=== PATIENT | female | born 1940 | race Caucasian/White ===

== ENCOUNTER 2017-06-28 00:49 | Observation (INO) | payer MEDICARE ==
[2017-06-28 01:16] LABS: #Basophils 0.1 thou/uL (0.0-0.2); #Eosinphils 0.4 thou/uL (0.0-0.7); #Monocytes 1.4 thou/uL (0.11-0.59); #Neutrophils 15.8 thou/uL (1.40-6.50); %Basophils 0.5 % (0.0-1.0); %Eosinophils 2.1 % (0.0-10.0); %Lymphocytes 10.3 % (21.0-51.0); Mean Platelet Volume 7.7 fL (7.4-10.4); Red Blood Cell (RBC) Count 4.41 mill/uL (4.20-5.40); White Blood Cell (WBC) Count 19.7 thou/uL (4.8-10.8)
[2017-06-28 01:34] LABS: ALT (SGPT) 10 U/L (8-55); AST (SGOT) 18 U/L (5-34); Alkaline Phosphatase 92 U/L (40-150); Anion Gap 13 mmol/L (10-20); BUN (Urea Nitrogen) 27 mg/dL (9.8-20.1); Bilirubin, Total 0.3 mg/dL (0.2-1.2); CK (CPK) 46 U/L (29-168); Calc. Creatinine Clearance 0 mL/min (70-130); Calcium 9.1 mg/dL (7.8-10.44); Carbon Dioxide 24 mmol/L (23-31); Chloride 106 mmol/L (98-107); Estimated GFR-MDRD 37; Globulin 3.3 g/dL (2.4-3.5); Protein, Total 7.4 g/dL (6.0-8.3)
[2017-06-28 01:39] LABS: Troponin I 0.029 ng/mL (< 0.028)
[2017-06-28 04:22] LABS: Bilirubin Negative (Negative); Blood, Urine Negative (Negative); Glucose, Urine (Dipstick) Negative (Negative); Ketone, Urine Negative (Negative); Nitrite Negative (Negative); Protein, Urine (Dipstick) Negative (Neg-Trace); Urobilinogen 0.2 mg/dL (0.2-1.0)
[2017-06-28] MEDS ORDERED: Nitroglycerin 2% Ointment 1 INCH/1 GM Packet ONE (04:39)
[2017-06-28 04:47] LABS: Troponin I 0.051 ng/mL (< 0.028)
[2017-06-28] MEDS ORDERED: Acetaminophen 325 MG TAB PO PRN ×2 (05:43→05:50)
[2017-06-28] MEDS ORDERED: Bisacodyl 5 MG TAB PO PRN (05:43)
[2017-06-28] MEDS ORDERED: Ondansetron ODT 4 MG TAB SL PRN (05:50)
[2017-06-28] MEDS ORDERED: Ondansetron HCl/PF 4 MG/2 ML Vial IVP PRN (05:50)
[2017-06-28] MEDS ORDERED: Sodium Chloride 0.9% 1,000 ML IV SCH (06:00)
[2017-06-28] MEDS ORDERED: Nitroglycerin 2% Ointment 1 INCH/1 GM Packet TOP SCH (06:00)
[2017-06-28] MEDS ORDERED: cloNIDine 0.1 MG TAB PO PRN (06:04)
[2017-06-28] MEDS ORDERED: Levothyroxine Sodium 50 MCG TAB PO SCH (06:15)
[2017-06-28] MEDS ORDERED: Cyanocobalamin 1000 MCG/ML VIAL SC SCH (06:30)
--- NOTE | 2017-06-28 06:36 | HP ---
PRIMARY CARE PHYSICIAN: Dr. Amandeep Kaur. PATIENT'S COASTAL/HARBOR DEFENSE OFFICER: Dr. Chapo Gonzalez. CHIEF COMPLAINT: Chest discomfort. HISTORY OF PRESENT ILLNESS: Ms. Griffin is a pleasant 77-year-old lady who was seen at [facility] on 06/28/2017. She reports that she had elevated blood pressures yesterday afternoon. Following that, her shoulders started aching. She also developed retrosternal chest discomfort, sensation of tightness, nonradiat ing, 4/10 at its worst, not accompanied by nausea or vomiting. She reports chronic lightheadedness w hen she stands suddenly. This has not changed. There were no relieving factors for the chest discom fort. However, she reports that it was worse when she took deep breaths. She came to the emergency room, because of ongoing retrosternal chest discomfort. REVIEW OF SYSTEMS: The following complete review of systems was negative, unless otherwise mentioned in the HPI or below: Constitutional: Weight loss or gain, sense of well-being, ability to conduct usual activities, exerc ise tolerance. Skin/Breast: Rash, itching, changes in hair growth or loss, nail changes, breast lumps, tenderness, swelling, nipple discharge. Eyes: Vision, double vision, tearing, blind spots, pain. ENT/Mouth: Headaches (location, time of onset, duration, precipitating factors), vertigo, lightheade dness, injury. Vision, double vision, tearing, blind spots, pain, nose bleeding, colds, obstruction, discharge, dental difficulties, gingival bleeding, dentures, neck stiffness, pain, tenderness, masses in thyroid or other areas. Cardiovascular: Precordial pain, substernal distress, palpitations, syncope, dyspnea on exertion, or thopnea, nocturnal paroxysmal dyspnea, edema, cyanosis, hypertension, heart murmurs, varicosities, ph lebitis, claudication. Respiratory: Pain, shortness of breath, wheezing, stridor, cough, hemoptysis, fever or night sweats. Gastrointestinal: Poor appetite, dysphagia, indigestion, abdominal pain, heartburn, eructation, naus ea, vomiting, hematemesis, jaundice, constipation, or diarrhea, abnormal stools (ino-colored, tarry, bloody, greasy, foul smelling), flatulence, hemorrhoids, recent changes in bowel habits. Genitourinary: Urgency, frequency, dysuria, nocturia, hematuria, polyuria, oliguria, unusual (or bismark nge in) color of urine, stones, hesitancy, change in size of stream, dribbling, acute retention or in continence, libido, potency. Musculoskeletal: Pain, swelling, redness or heat of muscles or joints, limitation, of motion, muscul ar weakness, atrophy, cramps. Neurologic/Psychiatric: Convulsions, paralyses, tremor, incoordination, parasthesias, difficulties w ith memory of speech, sensory or motor disturbances, or muscular coordination (ataxia, tremor), emoti onal problems, anxiety, depression, previous psychiatric care, unusual perceptions, hallucinations. Allergy/Immunologic: Skin rash, anemia, bleeding tendency, polydipsia, polyuria, intolerance to heat or cold. PAST MEDICAL HISTORY: Significant for hypertension, hypothyroidism, anemia, coronary artery disease, status post 3 cardiac stents, last stent about 2 or 3 years ago, she reports having a normal pharmac ologic stress test about 6 months ago. PAST SURGICAL HISTORY: Significant for coronary stents, renal stent, appendectomy and hysterectomy. PSYCHIATRIC HISTORY: Significant for anxiety. SOCIAL HISTORY: She denies tobacco use or recreational drug use. She drinks one small glass of red wine daily. FAMILY HISTORY: Significant for heart disease in 2 sisters and 3 brothers. CODE STATUS: I discussed her code status. She is DNR. ALLERGIES: ATIVAN and SULFA. CURRENT MEDICATIONS: Include carvedilol 25 mg 2 times a day, aspirin 81 mg daily, levothyroxine 50 m cg daily, alprazolam 0.125 mg 2 times a day, Benicar 40 mg daily, pravastatin 40 mg daily, clonidine 0.1 mg as needed. PHYSICAL EXAMINATION: GENERAL: Ms. Griffin is awake and alert, not in acute distress. VITAL SIGNS: Blood pressure is 137/58, pulse is 90. She is breathing at rate of 20 and saturating 9 6% on room air. She is afebrile. Her blood pressure in the emergency room was as high as 181/85. EYES: No scleral icterus. No conjunctival pallor. ENT: Moist mucosal membranes, no oropharyngeal erythema or exudates. NECK: Supple, nontender, normal range of movement. Trachea is midline. RESPIRATORY: Accessory muscles of breathing are not active. Chest wall movements are symmetric bila terally. LUNGS: Clear to auscultation without wheeze, rhonchi or crepitations. CARDIOVASCULAR: S1 and S2 are heard, regular. LUNGS: Peripheral pulses are palpable. No carotid bruits, no pericardial rub. ABDOMEN: Soft, nontender, bowel sounds heard, no hepatomegaly, no splenomegaly. NEUROLOGIC: Cranial nerves II through XII are intact. Deep tendon reflexes are 2+. SKIN: No rashes or subcutaneous nodules. MUSCULOSKELETAL: Power is 5/5 in all 4 extremities. Normal range of movement at all major extremity joints. LYMPHATIC: No cervical lymphadenopathy. PSYCHIATRIC: Normal mood, normal affect, patient is oriented to person, place, and time. LABORATORY DATA AND IMAGING: Ms. Griffin's labs and investigations were reviewed. I reviewed her elec trocardiogram, which shows normal sinus rhythm, no ST changes to suggest an acute coronary syndrome. She does have T-wave flattening in the inferior leads. Laboratory investigation showed leukocytosis with 19,700 white cells, of which 80.2% are neutrophils, normal hemoglobin, normal platelet count, e levated creatinine of 1.39, last known creatinine 1.07 in 07/2015, normal liver profile, indeterminat e troponin I of 0.051 at 0400 hours today, trending up from 0.029 at 0106 hours today. Lipase is nor mal. Urinalysis is normal. ASSESSMENT AND PLAN: Ms. Griffin is a pleasant 77-year-old lady who was seen at [facility] on 06/28/2017. Her problem list includes: 1. Chest pain: Given her significant cardiac history including the presence of coronary stents, I r ecommended pharmacologic stress test. However, since she had a normal stress test 6 months ago, the patient is reluctant to undergo another stress test at this time. We will obtain records from her ca rdiologist's office. We will also consult Cardiology Service here for their opinion and help with cynthia pollock. 2. Leukocytosis: Etiology is unclear. I reviewed her chest x-ray, which does not show any pulmonar y infiltrates. A flu test is pending. Urinalysis is normal. For now, we will continue to monitor f or any evidence of infection. 3. Renal insufficiency: Etiology is unclear at this time. Also, duration is unclear. For now, hyd rate the patient with intravenous fluids and recheck creatinine. 4. Hypertension: Resume home medications, monitor vital signs and titrate antihypertensives as need ed. 5. Hypothyroidism: Continue levothyroxine. 6. Anxiety: Continue alprazolam. Many thanks for allowing me to participate in your patient's care. Please feel free to contact me wi th any questions or concerns. LEVEL OF RISK: High. LEVEL OF COMPLEXITY: High.
[2017-06-28 07:53] VITALS: BMI 25.7
[2017-06-28] MEDS ORDERED: ALPRAZolam 0.25 MG TAB PO SCH (09:00)
[2017-06-28] MEDS ORDERED: Aspirin 325 MG TAB PO SCH (09:00)
[2017-06-28] MEDS ORDERED: Aspirin 81 mg Enteric Coated Tablet PO SCH (09:00)
[2017-06-28] MEDS ORDERED: Enoxaparin Sodium 40 MG/0.4 ML SYRINGE SC SCH (09:00)
[2017-06-28] MEDS ORDERED: Carvedilol 25 MG TAB PO SCH (09:00)
--- NOTE | 2017-06-28 10:10 | RAD ---
FRONTAL RADIOGRAPH CHEST PORTABLE UPRIGHT: Date: 06-28-17 Comparison: None. History: Hypertension, shoulder pain. FINDINGS: There is mild elevation of the right hemidiaphragm. Clips overlie the right hilar region. There is at herosclerotic calcification in the aortic arch. Coronary arterial calcification and/or stent material is noted. No pneumothorax, pleural fluid, focal consolidation or alveolar edema. IMPRESSION: No focal consolidation or alveolar edema. POS: [facility]
--- NOTE | 2017-06-28 11:09 | CON ---
DATE OF CONSULTATION: 06/28/2017 REASON FOR CONSULTATION: Atypical chest pain. PRIMARY PSYCHOLOGIST ENGINEERING: Dr. Chapo Gonzalez HISTORY OF PRESENT ILLNESS: Ms. Griffin is a very pleasant 77-year-old woman with a previous history o f CAD, status post stent placement x3 and renal artery stenosis, status post stent placement, who rec ently presented with malignant hypertension and atypical back and shoulder pain. She denies chest pr essure. She states her blood pressure was 218/103 during this episode. She then proceeded to the em ergency room. Her blood pressure was managed and her symptoms relieved. She states she recently had a stress study performed 6 months ago and by her account was felt to be w ithin normal limits. No ischemia present. She is currently pain free. Blood pressure also appears improved. PAST MEDICAL HISTORY: As described above including hypothyroidism, anemia, appendectomy, and hystere ctomy. SOCIAL HISTORY: No current tobacco or alcohol use. FAMILY HISTORY: Positive for CAD. ALLERGIES: ATIVAN and SULFA. CURRENT MEDICATIONS: Carvedilol, aspirin, Benicar, alprazolam, levothyroxine. Pravastatin and clonidine. REVIEW OF SYSTEMS: Ten point review of systems is reviewed and is as above, otherwise negative. PHYSICAL EXAMINATION: VITAL SIGNS: Blood pressure 129/81, pulse 86, respirations 20. GENERAL: Patient is a pleasant female who is in no acute distress. The patient appears her stated ag e. NEUROLOGIC: The patient is alert and oriented times 3 with no focal neurologic deficits. HEENT: Sclerae without icterus. Mouth has moist mucous membranes with normal pallor. NECK: No JVD. Carotid upstroke brisk. No bruits bilaterally. LUNGS: Clear to auscultation with unlabored respirations. BACK: No scoliosis or kyphosis. CARDIAC: Regular rate and rhythm with normal S1 and S2. No S3 or S4 noted. No significant rubs, mur murs, thrills, or gallops noted throughout the precordium. PMI is not displaced. There is no parast ernal heave. ABDOMEN: Soft, nontender, nondistended. No peritoneal signs present. No hepatosplenomegaly. No abn ormal striae. EXTREMITIES: 2+ femoral and 2+ dorsalis pedis pulses. No cyanosis, clubbing, or edema. SKIN: No gross abnormalities. PERTINENT LABS: Hemoglobin 12.6, creatinine 1.39. IMPRESSION: 1. Back and shoulder pain. 2. Malignant hypertension. 3. Coronary artery disease. RECOMMENDATIONS: Ms. Griffin recently had a noninvasive stress study that was negative for ischemia. I do not feel the need to proceed with a second stress study within a year. I discussed options incl uding coronary angiography versus medical therapy. Her symptoms are likely related to hypertensive c risis given a recent negative stress test. This is not her typical anginal symptoms. At this point, we have agreed to proceed with medical therapy. She would like to follow up with Dr. Gonzalez next we ek for further recommendations. I would recommend adding low dose Norvasc to her regimen in addition to continuing aspirin, atorvastatin, carvedilol. Otherwise, I have no further recommendations.
--- NOTE | 2017-06-28 11:26 | PDOC.PN ---
- Subjective Encounter Start Date: 06/28/17 Encounter Start Time: 11:25 Patient seen at bedside. No overnight events. No new complaints, but still has mild chest discomfort on inspiration. - Objective Resuscitation Status: Resuscitation Status DNR:Do Not Resuscitate Vital Signs & Weight: Vital Signs (12 hours) Temp Pulse Resp BP BP Pulse Ox 06/28/17 11:00 99.0 F 80 16 111/53 L 94 L 06/28/17 08:00 99.0 F 86 14 06/28/17 07:57 99.0 F 86 14 06/28/17 07:14 98.8 F 87 16 129/60 97 06/28/17 05:16 99.0 F 86 14 124/60 96 Weight Weight 150 lb 1.6 oz Result Diagrams: 06/28/17 01:05 06/28/17 01:05 Phys Exam - Physical Examination Constitutional: NAD HEENT: moist MMs Neck: no JVD Respiratory: clear to auscultation bilateral Cardiovascular: RRR Gastrointestinal: soft Musculoskeletal: pulses present Neurological: moves all 4 limbs Psychiatric: normal affect, A&O x 3 Dx/Plan (1) Chest pain Code(s): R07.9 - CHEST PAIN, UNSPECIFIED Status: Acute (2) Hypertension Code(s): I10 - ESSENTIAL (PRIMARY) HYPERTENSION Status: Acute Qualifiers: Hypertension type: essential hypertension Qualified Code(s): I10 - Essential (primary) hypertension - Plan cont current plan of care, plan discussed w/ family * Appreciate Cardiology input. Chest pain likely from elevated BP. Added Norvasc. The patient was offered a catheterization but wishes to f/u with her janitor caretaker Dr. Gonzalez at this time * Check CT chest to R/O PE * No overt etiology for leukocytosis. She states she would like to go home today and will follow up with here PCP for the results. * If CT is negative will D/C
[2017-06-28 15:53] VITALS: BP 105/54; TEMP 98.5
--- NOTE | 2017-06-28 15:57 | NM ---
VENTILATION PERFUSION STUDY 06/28/17 HISTORY: Elevated D-dimer. Left shoulder pain and high blood pressure. RADIOPHARMACEUTICALS: 15 millicuries Xenon 133, gas inhaled and 6.6 millicuries technetium 99m labeled MAA, IV. FINDINGS: The ventilation portion of the study demonstrates slight heterogeneous uptake within the lung bases w ith mild scattered retention of radiotracer on washout images suggesting an element of mild COPD. Perfusion images demonstrate a very small subsegmental perfusion defect at the posterior left lung ba se and it is difficult to determine whether this is a matched defect on the ventilation findings or w hether this represents a ventilation\perfusion mismatch. There are subtle linear photopenic defects a t the right lung base anteriorly as well as in the left upper lung zone also seen anteriorly which ar e not in a segmental or subsegmental distribution. There does appear to be a normal perfusion gradien t on the lateral views. Comparison chest x-ray demonstrates elevation of the right hemidiaphragm with atelectasis in the right mid lung zone. There is no moderate or large ventilation\perfusion mismatch seen within the lungs bilaterally. IMPRESSION: Low probability for pulmonary embolus. POS: [facility]
--- NOTE | 2017-06-28 18:25 | DIS ---
DATE OF ADMISSION: 06/28/2017 DATE OF DISCHARGE: 06/28/2017 DISCHARGE DISPOSITION: Home. DISCHARGE FOLLOWUP: 1. Follow up with Dr. Chapo Gonzalez, Cardiology in 7 days. 2. Her PCP as an outpatient. DISCHARGE DIAGNOSES: 1. Chest pain - acute coronary syndrome ruled out. 2. Hypertension. 3. Hypothyroidism. 4. History of coronary artery disease. DISCHARGE MEDICATIONS: 1. Xanax 0.25 mg p.o. b.i.d. 2. Aspirin 81 mg p.o. daily. 3. Coreg 25 mg p.o. b.i.d. 4. Catapres p.o. q.6 hours p.r.n. 5. Vitamin B supplements. 6. Levothyroxine 50 mcg p.o. daily. 7. Benicar 40 mg p.o. at bedtime. 8. Pravachol 40 mg p.o. at bedtime. 9. Amlodipine 2.5 mg p.o. daily. This is new. INPATIENT CONSULTATIONS: Dr. Hansen, Cardiology. INPATIENT PROCEDURES: None. INPATIENT RADIOGRAPHIC EXAMINATIONS: 1. Chest x-ray, which revealed no focal consolidation or alveolar edema. 2. VQ scan, which revealed low probability for pulmonary embolus. BRIEF HOSPITAL COURSE: Ms. Ebony Griffin is a 77-year-old female, who presents to the emergency room c omplaining of chest discomfort. The patient has a history of coronary disease and was subsequently p laced in observation onto the telemetry floor. She was noted to have indeterminate troponins. Given her history of coronary artery disease, Cardiology was consulted, who offered a catheterization; how ever, the patient did not want to do this and wants to follow up with her forensic psychiatrist as an outpatie nt. She states she had a negative stress test approximately 6 months ago. She has never had any fur ther chest pain or shortness of breath. She will follow up with Dr. Gonzalez within 7 days. In additi on, the patient did have an elevated D-dimer, hence, a VQ scan was ordered. The VQ scan showed low p robability for pulmonary embolus. Hence, no further intervention was performed. The patient had freddy kocytosis of 19,000. I stated that she can stay in the hospital to see if there is any acute infecti on; however, at this time she wanted to go home and follow up with her PCP. While here, the patient was afebrile. She did have a urinalysis was within normal limits. X-ray showed no pneumonia. She s tates she will follow up any culture results with her PCP. She is asymptomatic at this time and is w illing to go home and follow up with her PCP and her forensic psychiatrist within 1 week. [facility] in stable condition. DISCHARGE DIET: Heart healthy. ACTIVITY: As tolerated. RESTRICTIONS: None. CODE STATUS: DNR. ALLERGIES: ATIVAN and SULFAS. It was noted that the patient at bedside. She agrees with the plan of discharge. All questions have been answered. Time required to prepare for discharge was 31 minutes.
[2017-06-28] MEDS ORDERED: Atorvastatin Calcium 10 MG TAB PO SCH (21:00)
[2017-06-29] MEDS ORDERED: Levothyroxine Sodium 50 MCG TAB PO SCH (06:00)
[2017-06-29] MEDS ORDERED: Amlodipine 5 MG TAB PO SCH (09:00)
== END 2017-06-28 16:57 | disposition home or self-care (01) ==
LOC: ERS 00:49 → 2SW 03:26
PROVIDERS: ADMIT Internal Medicine; ATTEND Internal Medicine
DX: R07.89 Other chest pain (principal); I10 Essential (primary) hypertension; E03.9 Hypothyroidism, unspecified; I25.10 Atherosclerotic heart disease of native coronary artery without angina pectoris; R42 Dizziness and giddiness; D64.9 Anemia, unspecified; F41.9 Anxiety disorder, unspecified; D72.829 Elevated white blood cell count, unspecified; N28.9 Disorder of kidney and ureter, unspecified; M54.9 Dorsalgia, unspecified; M25.519 Pain in unspecified shoulder; Z66 Do not resuscitate; Z79.82 Long term (current) use of aspirin; Z79.899 Other long term (current) drug therapy; Z88.2 Allergy status to sulfonamides; Z88.8 Allergy status to other drugs, medicaments and biological substances; Z96.0 Presence of urogenital implants; Z95.818 Presence of other cardiac implants and grafts; Z90.49 Acquired absence of other specified parts of digestive tract; Z90.710 Acquired absence of both cervix and uterus
CPT/HCPCS: 71010; 78582; 80053; 81003; 82550; 82553; 83690; 84484 ×2; 85025; 85379; 87040; 87086; 93005; 96360; 96361; 99285; A9540; A9558; G0378; 36415; J1650; J3420

== ENCOUNTER 2017-10-01 09:24 | Inpatient (IN) | payer MEDICARE ==
[2017-10-01 10:06] LABS: #Basophils 0.1 thou/uL (0.0-0.2); #Eosinphils 0.3 thou/uL (0.0-0.7); #Lymphocytes 1.4 thou/uL (1.20-3.40); #Monocytes 0.6 thou/uL (0.11-0.59); #Neutrophils 5.8 thou/uL (1.40-6.50); %Basophils 0.7 % (0.0-1.0); %Eosinophils 3.7 % (0.0-10.0); %Lymphocytes 17.2 % (21.0-51.0); %Monocytes 6.8 % (0.0-10.0); %Neutrophils 71.5 % (42.0-75.0); Hemoglobin 11.8 g/dL (12.0-16.0); Mean Corpuscular HGB CONC 32.9 g/dL (32.0-36.0); Mean Corpuscular Hemoglobin 28.5 pg (27.0-31.0); Mean Corpuscular Volume 86.6 fl (81.0-99.0); Mean Platelet Volume 7.7 fL (7.4-10.4); Platelet Count 297 thou/uL (130-400); RBC Distribution Width 12.5 % (11.5-14.5); Red Blood Cell (RBC) Count 4.14 mill/uL (4.20-5.40); White Blood Cell (WBC) Count 8.1 thou/uL (4.8-10.8)
[2017-10-01] MEDS ORDERED: Ondansetron HCl/PF 4 MG/2 ML Vial ONE (10:12)
[2017-10-01 10:17] LABS: INR-International Normal Ratio 1.1; PTT 30.7 SEC (22.9-36.1)
[2017-10-01 10:24] LABS: ALT (SGPT) 8 U/L (8-55); AST (SGOT) 19 U/L (5-34); Albumin 3.8 g/dL (3.4-4.8); Alkaline Phosphatase 83 U/L (40-150); Anion Gap 13 mmol/L (10-20); BUN (Urea Nitrogen) 15 mg/dL (9.8-20.1); Bilirubin, Total 0.4 mg/dL (0.2-1.2); Calc. Creatinine Clearance 0 mL/min (70-130); Calcium 9.1 mg/dL (7.8-10.44); Carbon Dioxide 24 mmol/L (23-31); Chloride 106 mmol/L (98-107); Estimated GFR-MDRD 49; Globulin 2.8 g/dL (2.4-3.5); Glucose 129 mg/dL (83-110); Potassium 4.1 mmol/L (3.5-5.1); Sodium 139 mmol/L (136-145)
[2017-10-01 10:29] LABS: CKMB 0.7 ng/mL (0-6.6); Troponin I 0.054 ng/mL (< 0.028)
[2017-10-01 10:30] LABS: Protein, Total 6.6 g/dL (6.0-8.3)
[2017-10-01] MEDS ORDERED: niCARdipine 20MG In NaCl 20 MG/200 ML BAG ONE (10:44)
--- NOTE | 2017-10-01 10:58 | CT ---
CT BRAIN WITHOUT CONTRAST: CLINICAL HISTORY: Headache. COMPARISON: None. FINDINGS: There is a diffuse subarachnoid hemorrhage, especially within the basilar cisterns. There is also he morrhage in the prepontine quadrigeminal plate cisterns. There is hemorrhage in the foramen of Monro e and the third ventricle. There is also small volume hemorrhage layering within the atria of the la teral ventricles bilaterally. There is some crowding at the foramen magnum with some early downward transtentorial herniation. Mil d hydrocephalus. 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 Mild microvascular ischemic changes. The calvarium is intact. Paranasal sinuses and mastoids are clear. IMPRESSION: 1. Extensive subarachnoid hemorrhage centered in the right Sylvian fissure as well as the basilar ci sterns concerning for an aneurysm rupture. 2. Interventricular hemorrhage of the foramen of Reyes and of the third ventricle with as small vol ume hemorrhage layering within the dependent portion of the atria of the lateral ventricles. There i s subsequent hydrocephalus as well as crowding of the foramen magnum and concern for early downward t ranstentorial herniation. Hemorrhage is seen throughout the prepontine and basilar cisterns. Dr. Gonzáles contacted 10:24 am. CODE CR POS: [facility]
[2017-10-01] MEDS ORDERED: Promethazine HCl 25 MG/ML VIAL IM PRN (11:04)
[2017-10-01] MEDS ORDERED: diphenhydrAMINE 50 MG/ML VIAL IVP PRN (11:04)
[2017-10-01] MEDS ORDERED: Docusate 100 MG CAP PO PRN (11:04)
[2017-10-01] MEDS ORDERED: HYDROcodone/Acetaminophen 7.5/325 mg Tablet PO PRN (11:04)
[2017-10-01] MEDS ORDERED: Milk Of Magnesia 30 ML UDCUP PO PRN (11:04)
[2017-10-01] MEDS ORDERED: Mag-Al 1200 mg/1200 mg/30 ML UDCUP PO PRN (11:04)
[2017-10-01] MEDS ORDERED: Aminocaproic Acid 5 GM in Sodium Chloride 0.9% 250 ML 250 ML IV SCH (11:15)
[2017-10-01] MEDS ORDERED: Aminocaproic Acid 1 GM in Sodium Chloride 0.9% 250 ML 250 ML IV SCH (11:15)
--- NOTE | 2017-10-01 12:38 | CT ---
CONTRAST ENHANCED CTA BRAIN: HISTORY: Patient with visual changes, right-sided temporal pain. FINDINGS: Contrast-enhanced CTA of the brain was performed. Two-D and 3D reconstruction images performed on an independent 3D work station. There is an approximately 5 mm right middle cerebral artery aneurysm involving the right M2 segments of the right middle cerebral artery. This correlates with the area of hemorrhage in the right Luna n fissure. No other obvious intracranial aneurysm is seen. Anterior communicating artery is unremar kable. Posterior cerebral arteries unremarkable. No evidence of PICA aneurysm seen. 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 POS: [facility]
[2017-10-01] MEDS ORDERED: ISOVUE-370 76%-LOCM 1 ML ONE (12:46)
--- NOTE | 2017-10-01 15:41 | HP ---
ATTENDING PHYSICIAN: Kenroy Johnston M.D. HISTORY OF PRESENT ILLNESS: The patient is a 77-year-old female with a past medical history of hypertension and coronary artery disease, who presented to the emergency department per EMS for acute onset of headache. The patient reports she had a mild headache over the right temporal region for the past 2 weeks, but her headache suddenly became significantly worse this morning after waking from bed, located primarily over the right periorbital region. This was associated with nausea and vomiting. EMS was brought the patient to the emergency department for further evaluation and CT head was done on arrival , which revealed acute subarachnoid hemorrhage; therefore, the Neurosurgical Service was consulted for further management. I am seeing the patient at bedside. She is A and O x4. Pupils are equal and reactive. She has normal cranial nerve exam. No focal neurologic deficits are appreciated. Her only complaints are headache, nausea and vomiting. I have recommended CTA be done; however, this has not yet been completed. PAST MEDICAL HISTORY: Hypertension, hypothyroidism, anemia, history of breast cancer, coronary artery disease with 3 cardiac stents, and renal stent x1. PAST SURGICAL HISTORY: Cardiac stent x3, renal stent x1, appendectomy, and hysterectomy. SOCIAL HISTORY: The patient is . She lives at home. She drinks 1 alcoholic drink daily. She denies any smoking history or drug use. ALLERGIES: The patient is allergic to ATIVAN and SULFA. FAMILY HISTORY: Noncontributory. PHYSICAL EXAMINATION: VITAL SIGNS: Blood pressure is 134/62, pulse 70, respiratory rate 16, temperature is 97.7, and the patient is 95% on room air. CONSTITUTIONAL: She is awake and alert, no acute distress. HEENT: Normocephalic, atraumatic. EYES: PERRLA. Extraocular movements are intact. ENT: Mucosa is pink and intact. The patient has a normal voice. NECK: Nontender to palpation. Free active range of motion. No meningismus or nuchal rigidity. RESPIRATORY: The patient is breathing comfortable, no respiratory distress. CARDIOVASCULAR: She has a regular rate and rhythm. MUSCULOSKELETAL: Good muscle tone in the bilateral upper and lower extremities. Symmetric peripheral pulses. NEUROLOGIC: She is A and O x4. She has a GCS of 15. No focal neurologic deficits are appreciated. ASSESSMENT AND PLAN: The patient appears to have acute subarachnoid hemorrhage. This will be evaluated further with CTA. The patient will be admitted to the ICU for q.1 neuro checks and close monitoring. We will also monitor the patient's blood pressure closely. I have initiated Bia bailey here in the ER as well as ordered Amicar and Nimopod. I have consulted Critical Care as well as the Hospitalist for assistance in medical management. I have discussed this plan with Dr. Johnston, who is in agreement. Please reach out to Neurosurgery Service for additional questions or concerns. TIFFANY
[2017-10-01] MEDS ORDERED: Acetaminophen 325 MG TAB ONE (16:05)
[2017-10-01] MEDS: Sodium Chloride 0.9% 1,000 ML IV SCH (19:00)
[2017-10-01] MEDS: niMODipine 30 MG CAP PO SCH ×2 (20:50→20:58)
[2017-10-01] MEDS: Famotidine/PF 20 mg/2ml Vial SLOW IVP SCH (20:58)
[2017-10-01] MEDS: ALPRAZolam 0.25 MG TAB PO SCH (20:58)
[2017-10-02] MEDS: Acetaminophen 325 MG TAB PO PRN ×2 (00:31→21:54)
[2017-10-02] MEDS ORDERED: Acetaminophen 1,000 MG in Premix Bag 1 BAG IVPB PRN (01:04)
[2017-10-02] MEDS: niMODipine 30 MG CAP PO SCH ×6 (01:13→21:54)
[2017-10-02] MEDS ORDERED: Acetaminophen 1,000 MG in Premix Bag 1 BAG IVPB SCH (01:15)
--- NOTE | 2017-10-02 02:20 | CON ---
DATE OF CONSULTATION: 10/01/2017 HISTORY: Ms. Griffin is a very pleasant 77-year-old female. She had a severe headache that she says the worst headache of her life after having a mild headache for the last couple of weeks. She had with this nausea and vomiting. EMS was summoned and she was brought here. Subarachnoid bleed was identified. CT angiogram was subsequently done after a head CT showed the bleed. 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 Neurosurgery has been consulted. She is not ventilated. She is in no distress. Other than having headache and not really wanting to talk much, she looks fine. PAST MEDICAL HISTORY: Remarkable for, 1. Hypertension. 2. Hypothyroidism. 3. Coronary artery disease with 3 coronary stents in the past followed by Dr. Hansen. 4. History of renal artery stent. 5. History of an appendectomy and hysterectomy. SOCIAL HISTORY: She is nonsmoker, nondrug user. She drinks red wine in the evening. FAMILY HISTORY: Positive for heart disease. Negative for lung disease in early age. When she was admitted in 06/2017, Dr. De Oliveira's note states that she was a DO NOT RESUSCITATE patient. REVIEW OF SYSTEMS: 12-point review of systems otherwise negative. PHYSICAL EXAMINATION: VITAL SIGNS: Blood pressure was in the 90s when she arrived. She was on a Cardene drip from the emergency room. This was stopped. Her blood pressure is now 115/53, heart rate is 90, respiratory rate is 20, oximetry is 95%. HEENT: Pupils are equal. Sclerae are anicteric. NECK: Supple. She really does not like the light. She has no cervical lymphadenopathy. LUNGS: Clear. HEART: Regular rhythm. S1 and S2 are normal. ABDOMEN: Soft and nontender. EXTREMITIES: Without clubbing, cyanosis, or edema. NEUROLOGIC: Nonfocal. LABORATORY DATA: White count is 8.1, hemoglobin 11.8, platelets 297,000. Sodium 139, potassium 4.1, chloride 106, bicarb 24, BUN 15, creatinine 1.09, glucose 129. IMPRESSION: Aneurysmal subarachnoid bleed. She appears to be clinically stable. Blood pressure is not requiring drip control. Neurosurgery will guide the next steps. Given that she was a DO NOT RESUSCITATE status last admission, I did not really discover this until just now , so this will need to be addressed while she is in the hospital. She appears to be a fairly functional 77-year-old, so I am not sure that this would be appropriate in this setting. I would be happy to follow with the other physicians for caring for while she is in the Critical Care Unit. This is a 70-minute consult greater than 50% of the consult was spent on the unit coordinating care. TIFFANY
[2017-10-02 06:18] LABS: Anion Gap 15 mmol/L (10-20); BUN (Urea Nitrogen) 23 mg/dL (9.8-20.1); Calc. Creatinine Clearance 35 mL/min (70-130); Calcium 8.5 mg/dL (7.8-10.44); Carbon Dioxide 21 mmol/L (23-31); Chloride 107 mmol/L (98-107); Estimated GFR-MDRD 36; Glucose 117 mg/dL (83-110); Potassium 5.4 mmol/L (3.5-5.1); Sodium 138 mmol/L (136-145)
[2017-10-02 06:30] LABS: Band 7 % (5-11); Hemoglobin 11.4 g/dL (12.0-16.0); Lymphocytes 11 % (21-51); MDiff Complete? YES; Mean Corpuscular HGB CONC 33.1 g/dL (32.0-36.0); Mean Corpuscular Hemoglobin 28.3 pg (27.0-31.0); Mean Corpuscular Volume 85.5 fl (81.0-99.0); Mean Platelet Volume 8.3 fL (7.4-10.4); Monocytes 4 % (0-10); Neutrophil 78 % (42-75); PLT Morphology Comment Appears Adequate; Platelet Count 287 thou/uL (130-400); RBC Distribution Width 12.6 % (11.5-14.5); RBC Morphology Normal; Red Blood Cell (RBC) Count 4.02 mill/uL (4.20-5.40); White Blood Cell (WBC) Count 22.1 thou/uL (4.8-10.8)
[2017-10-02] MEDS ORDERED: Midazolam HCl 2 mg/2 ml Vial ONE (07:44)
[2017-10-02] MEDS ORDERED: Midazolam HCl 2 mg/2 ml Vial IVP SCH (07:45)
[2017-10-02] MEDS ORDERED: Fentanyl 100 MCG/2 ML VIAL ONE (08:02)
[2017-10-02] MEDS ORDERED: Fentanyl 100 MCG/2 ML VIAL SLOW IVP SCH (08:06)
[2017-10-02] MEDS ORDERED: Naloxone HCl 0.4 mg/ml Vial ONE (08:35)
--- NOTE | 2017-10-02 08:50 | OP ---
DATE OF PROCEDURE: 10/02/2017 PROCEDURE PERFORMED: Right frontal ventriculostomy via twist drill INDICATION: SAH with resulting hydrocephalus PROCEDURE NOTE: The procedure was performed at the bedside in the CCU room 8. The right frontal region was shaved, prepped, and draped in sterile fashion. Kochers point was identified. A 1 cm inicision was made over this point. A twist drill was used to perforate bone and dura. The EVD catheter was placed easily in a single pass. Brisk CSF flow was obtained with the ventriculostomy catheter in the right frontal region. The stylet was removed and the catheter was then secured in place with suture and connected to the drainage system. Covered with a tegederm dressing. The patient tolerated the procedure well. TIFFANY
[2017-10-02] MEDS ORDERED: Propofol 1,000 MG/100 ML VIAL IV ONE ×2 (09:05→15:26)
--- NOTE | 2017-10-02 09:36 | CT ---
PRELIMINARY REPORT/[facility]/EMERGENCY AFTER HOURS PROCEDURE: Addendum created by Mike Lin MD on 10/02/2017 5:29 AM Central Time ([place] & [place]) THIS REPORT CONTAINS FINDINGS THAT MAY BE CRITICAL TO PATIENT CARE. The findings were verbally commun icated via telephone conference with DOLORES JUNG at 5:29 AM CLINICAL RESEARCHER on 10/02/2017. The findings were ac knowledged and understood. Initial Report created on 10/02/2017 5:24 AM Central Time ([place] & [place]) EXAM: CT Head Without Intravenous Contrast EXAM DATE/TIME: Exam ordered 10/02/2017 5:03 AM CLINICAL HISTORY: 77 years old, female; Signs and symptoms; Altered mental status/memory loss; Confusion or disorientat ion; Patient HX: AMS. Change on neuro status; Additional info: *scan done helical due to pt constantl y moving TECHNIQUE: Axial computed tomography images of the head/brain without intravenous contrast. COMPARISON: CT Brain WO Con 2017-10-01 10:20 FINDINGS: Brain: Redemonstrated is subarachnoid hemorrhage within the basal cisterns, medial frontal and bilate ral insular regions. Trace layering hemorrhage is noted within the bilateral occipital horns and four th ventricle. Ventricles: There is mild ventriculomegaly, increased from prior. Bones/joints: Normal. No acute fracture. Soft tissues: Normal. Sinuses: Unremarkable as visualized. No acute sinusitis. Mastoid air cells: Unremarkable as visualized. No mastoid effusion. IMPRESSION: Diffuse subarachnoid and intraventricular hemorrhage with mild ventriculomegaly, probably slightly in creased from prior. Thank you for allowing us to participate in the care of your patient. Dictated and Authenticated by: Mike Lin MD 10/02/2017 5:24 AM Central Time ([place] & [place]) FINAL REPORT HEAD CT WITHOUT CONTRAST: DATE: 10/02/17. COMPARISON: 10/01/17. HISTORY: Altered mental status. FINDINGS: Imaged paranasal sinuses/mastoid air cells are well aerated. There is no displaced calvarial fractur e. There is diffuse subarachnoid hemorrhage, seen in the bilateral Sylvian fissures, right greater than left, and bilateral frontal regions, right greater than left, and the prepontine cistern region and t he ambient cisterns. There is loss of kim-white differentiation in areas of the MCA territories, right greater than left, progressed since the prior examination, concerning for cerebral edema. There is crowding of the bas ilar cisterns with loss of CSF space at the level of the basilar cisterns and uncal regions. A degre e of this may be on the basis of obscuration by hemorrhage. Developing downward herniation is certai nly a possibility. There is blood layering within the posterior horns of the bilateral lateral ventr icles. There is hyperdensity in the 4th ventricle suggesting intraventricular hemorrhage. There is hemorrhage in the third ventricle as well. The ventricles are dilated, definitely worsened since the prior exam. The third ventricle measures 1 .3 cm in transverse dimension, previously measuring 8 mm. Bilateral atria are dilated, more so than on the prior exam. IMPRESSION: Extensive subarachnoid hemorrhage with intraventricular blood noted. Since the prior examination, th ere has been worsening in cerebral edema and worsening ventriculomegaly suggesting obstructive hydroc ephalus. There is significant crowding of the basilar cisterns which may signify developing downward herniation. Case discussed with Dolores Jung at 8am on 10/02/2017. POS: [place]
[2017-10-02 10:03] LABS: Actual Bicarbonate (HCO3a) 22.5 mEq/L (22-26); Base Excess (BEa) -0.2 mEq/L (0 (+/-) 2.5); CO2 Tension 30.6 mmHg (35.0-45.0); Calcium, Ionized 1.1 mmol/L (1.12-1.30); Hemoglobin (Hb) 11.3 g/dL (12.0-16.0); O2 Tension (PaO2) 56.8 mmHg (80.0-100.0); Puncture Site RR; pH, Arterial 7.49 (7.35-7.45)
[2017-10-02] MEDS: CEFAZOLIN/Water 2 GM/20 ML SYRINGE SLOW IVP SCH ×2 (10:09→17:29)
[2017-10-02] MEDS: Famotidine/PF 20 mg/2ml Vial SLOW IVP SCH ×2 (10:10→21:55)
[2017-10-02] MEDS: ALPRAZolam 0.25 MG TAB PO SCH (10:18)
[2017-10-02] MEDS: Sodium Chloride 0.9% 1,000 ML IV SCH ×2 (10:42→14:03)
[2017-10-02] MEDS: Labetalol HCl 100 MG/20 ML VIAL SLOW IVP PRN (15:52)
[2017-10-02] MEDS ORDERED: Fentanyl BOLUS 250 ML IVPB PRN (16:26)
[2017-10-02] MEDS ORDERED: fentaNYL Citrate/PF 2,000 MCG in Sodium Chloride 0.9% 60 ML IV SCH (16:26)
[2017-10-02] MEDS ORDERED: DISCONTINUE PREVIOUS NARCOTIC PAIN MEDICATIONS AND BENZODIAZEPINES FS SCH (16:26)
[2017-10-02] MEDS ORDERED: Morphine 2 MG/ML SYRINGE SLOW IVP PRN (16:26)
--- NOTE | 2017-10-02 16:34 | CON ---
INPATIENT CONSULTATION NOTE DATE OF CONSULTATION: 10/02/2017 REQUESTING PHYSICIAN: Dr. Kenroy Johnston. REASON FOR CONSULTATION: Medical management. HISTORY OF PRESENT ILLNESS: Ms. Griffin is a 77-year-old white female patient who presented to the [facility] Department on 10/01/2017, complaining of severe headache as worst headache of her life. It knott s been ongoing for a couple of weeks, but has significantly gotten worse in the last 48 hours. She developed nausea and vomiting. EMS was called and she was brought to the Emergency Department fo r evaluation. CT scan of the brain showed subarachnoid hemorrhage. CT angiogram was done to show th e bleed. There was a 5 mm right cerebral artery aneurysm involving the M2 segment of the right middl e cerebral artery that correlates with the area of hemorrhage. Neurosurgery has been consulted and a dmitted the patient to the ICU. There, on 10/01, she underwent a bedside ventriculostomy placement f or increased intracranial pressure. Postoperatively, she developed some respiratory distress and was subsequently relatively stable. She was continued in the ICU. The patient does have a history of do not resuscitate, but otherwise has been fairly functional. Overnight, the patient has been relatively stable. She developed some respiratory depression, but re mained relatively stable. Repeat CT scan today showed redemonstrated subarachnoid hemorrhage with increased mild ventriculomega ly. We were consulted for medical management. PAST MEDICAL HISTORY: 1. Hypertension. 2. Hypothyroidism. 3. Anemia of chronic disease. 4. History of breast cancer. 5. Coronary artery disease. 6. Chronic kidney disease. PAST SURGICAL HISTORY: Includes; 1. PTCA with PCI and cardiac stent x3. 2. Renal stent x1. 3. Appendectomy, remotely. 4. Hysterectomy remotely. HOME MEDICATIONS: 1. Xanax 0.25 mg p.o. b.i.d. 2. Norvasc 2.5 mg p.o. daily. 3. Aspirin 81 mg daily. 4. Coreg 25 mg p.o. b.i.d. 5. Clonidine 0.1 mg q.6 hours p.r.n. elevated pressure. 6. Cyanocobalamin 100 mcg subcu every 4 weeks. 7. Levothyroxine 50 mcg daily. 8. Benicar 40 mg p.o. at bedtime. 9. Pravachol 40 mg p.o. at bedtime. ALLERGIES: SULFA and LORAZEPAM. FAMILY HISTORY: Negative for clotting or bleeding disorder, no immune dysfunction. SOCIAL HISTORY: Negative for habits x3. She is fairly functional and lives independently. REVIEW OF SYSTEMS: A 10-point review of systems was performed and is negative for all systems except stated as per HPI. PHYSICAL EXAMINATION: VITAL SIGNS: Temperature at the time of this dictation was 100.4, T-max in the last 24 hours 100.4, current pulse 91, blood pressure 130/80 with a MAP of 91, respiratory rate 17-27 and satting 99%. In tracranial monitoring shows a mean intracranial pressure to be around 16. GENERAL: The patient is awake and alert. She is in no acute distress. HEENT: She is normocephalic and atraumatic. She has a ventriculostomy present. Incision site is cl milton, dry, and intact. Pupils are equal, round and reactive to light bilaterally. Mucous membranes a re moist. She is anicteric. NECK: Supple. She has no lymphadenopathy, no JVD, no thyromegaly. She has normal carotid upstrokes without bruits. CHEST: Lungs are clear. She has good air movement bilaterally. No wheezes, no rales, no rhonchi. CARDIOVASCULAR: She has a regular rhythm. Normal S1 and S2. No S3 or S4. No audible murmurs. ABDOMEN: Soft. It is nontender and nondistended. No mass, no organomegaly. No rebound, rigidity o r guarding. EXTREMITIES: No cyanosis, no clubbing, no edema. She has got 1+ distal pulses in the dorsalis pedis and posterior tibial arteries bilaterally. NEUROLOGIC: Shows cranial nerves II-XII grossly intact. She has 4/5 strength in all 4 extremities. She has no focal deficits and normal speech. LABORATORY DATA: White blood cell count today 22.1 on steroids that is from 8.1 yesterday, hemoglobi n 11.4, hematocrit of 34.4, and platelet count is 287,000. She has 70% granulocytes, 7% bands and 11 % lymphocytes. INR on admission was 1.1, not repeated today. Her ABG today shows a pH of 7.49, pCO2 of 30.6 and pO2 of 56.8. Chemistries today showed a sodium of 138, potassium 5.4, chloride 107, bicarbonate 21, BUN of 23 and creatinine 1.41 up from 1.09 yesterday. GFR is calculated at 36, 49 yesterday. Glucose of 117 and c alcium is 8.5. CK-MB on admission was 0.7. Troponin I was 0.54. ASSESSMENT AND PLAN: 1. Subarachnoid hemorrhage, status post ventriculostomy placement. The patient was admitted by Neur osurgery. 2. Hypertension, currently fairly well controlled. Permissive hypertension, currently being underta scott. 3. Hyperlipidemia, on pravastatin. Now, patient will hold for the time being. 4. Chronic anemia. 5. Coronary artery disease, without symptoms. 6. Chronic kidney disease with a possible acute kidney injury, continue hydration. Thank you very much for this consult. I will follow along with you. I appreciate the Pulmonary Crit ical Care input.
--- NOTE | 2017-10-02 16:51 | OP ---
10/02/2017 PROCEDURE: Fiberoptic intubation. The patient was obtunded and vomiting. The bronchoscope was passed through the left nasal passage down through the cords into the trachea. The endotracheal tube was secured above the main cm under direct visualization. She was connected to mechanical ventilation. Prior to connecting to mechanical ventilation, her entire tracheobronchial tree was quickly inspected. No aspiration. No aspirated gastric secretions were visualized. Scope was withdrawn and she was connected ventilation. Post-intubation blood gas shows pH of 7.49, pCO2 30, pO2 56. Her potassium is 3.8 on her blood gas. Hemoglobin is 11.3. Her current ventilator settings are 18, FiO2 40, tidal volume 600, 5 of PEEP. MTDD
--- NOTE | 2017-10-02 20:19 | PRG ---
DATE OF SERVICE: 10/02/2017 SUBJECTIVE: Ms. Griffin apparently had a dramatic decline in mental status overnight. Ventriculostomy had just been placed when I arrived. Her vital signs remained stable. When I evaluated her in the room, she was not protecting her airway. Her lungs are clear. Heart, regular rhythm. Abdomen is soft. Extremities: With asymmetry. LABORATORY DATA: White count was 22.1, hemoglobin 11.4, platelets 287. Sodium 138, potassium 5.4, chloride 107, bicarbonate 21, BUN 23, creatinine 1.41 , glucose 117. I recommended Romazicon, as she had been given Versed for her ventriculostomy. I also recommended Narcan, as she had been given fentanyl at the same time for the ventriculostomy. She only minimally awakened and still was not protecting her airway. So, I had respiratory therapy set up for fiberoptic intubation. About that time, she started vomiting. Her mouth was suctioned clear. Because of the vomit in her posterior pharyngeal space, I could not visualize her airway. Bronchoscope was passed through her left naris and I was able to visualize her cords and pass the scope into her trachea with the bronchoscope. An endotracheal tube was advanced and secured above the main cm. The scope was withdrawn. No aspirated secretions were seen in the tracheobronchial tree with inspection of all of her lobes. She did have epistaxis, but this resolved with Irvin-Synephrine squirted into her left nasal passage. I met with family afterwards. I have explained that she would not be left intubated indefinitely and explained that we are hoping for clinical improvement in her neurological status. I suspect her bump in her creatinine is related to the contrast give with initial imaging studies and from underlying chronic kidney disease. Her aneurysm intervention is put on hold, because of her bump in her creatinine. IMPRESSION: 1. Subarachnoid bleed with a decreased mental status, secondary to increased intracranial pressure. Ventriculostomy is now in place. 2. Right middle cerebral artery aneurysm. 3. Hypertension. 4. Hypothyroidism. 5. History of coronary stenting. 6. History of renal artery stenting. 7. Respiratory failure secondary to increased intracranial pressure. 8. Vomiting prior to intubation with no clinical evidence of aspiration. Critical care time 40 minutes independent of the procedure. [facility]
[2017-10-03] MEDS: CEFAZOLIN/Water 2 GM/20 ML SYRINGE SLOW IVP SCH ×3 (00:51→17:47)
[2017-10-03] MEDS: Sodium Chloride 0.9% 1,000 ML IV SCH ×2 (00:51→18:50)
[2017-10-03] MEDS: niMODipine 30 MG CAP PO SCH ×6 (00:51→20:02)
[2017-10-03] MEDS: Propofol 1,000 MG/100 ML VIAL IV PRN ×3 (00:52→18:50)
[2017-10-03 06:43] LABS: Anion Gap 16 mmol/L (10-20); BUN (Urea Nitrogen) 20 mg/dL (9.8-20.1); Calc. Creatinine Clearance 39 mL/min (70-130); Carbon Dioxide 16 mmol/L (23-31); Chloride 111 mmol/L (98-107); Estimated GFR-MDRD 42; Glucose 104 mg/dL (83-110); Magnesium 1.9 mg/dL (1.6-2.6); Potassium 3.5 mmol/L (3.5-5.1); Sodium 139 mmol/L (136-145)
[2017-10-03 07:29] LABS: pH, Arterial 7.51 (7.35-7.45)
[2017-10-03 07:31] LABS: Base Excess (BEa) -4.6 mEq/L (0 (+/-) 2.5); CO2 Tension 22.1 mmHg (35.0-45.0); Hematocrit-ABG 31.7 % (36.0-47.0); Hemoglobin (Hb) 10.6 g/dL (12.0-16.0); O2 Tension (PaO2) 74.2 mmHg (80.0-100.0)
[2017-10-03 07:33] LABS: ALV-art Gradient 183.375 (0-20); Analyzer IN Cardio OR; Puncture Site RBA
[2017-10-03] MEDS: Diltiazem 125 MG in Sodium Chloride 0.9% 100 ML IVPB SCH ×2 (08:23→22:46)
--- NOTE | 2017-10-03 09:29 | PDOC.PN ---
- Subjective Encounter Start Date: 10/03/17 Encounter Start Time: 09:28 Ms. Griffin was seen today for acute ICH from a ruptured cerebral aneurysm. She is intubated and sedated. No problems voiced by staff. - Objective Resuscitation Status: Resuscitation Status DNR:Do Not Resuscitate MAR Reviewed: Yes Vital Signs & Weight: Vital Signs (12 hours) Temp Pulse Resp BP 10/03/17 09:00 99.6 F 10/03/17 08:00 12 10/03/17 06:42 80 117/46 L 10/03/17 06:00 99.9 F H 10/03/17 05:00 99.8 F H 10/03/17 04:00 99.5 F 10/03/17 03:00 98.4 F 10/03/17 02:00 99.7 F H 18 10/03/17 01:00 98.0 F 10/03/17 00:00 99.0 F 18 10/02/17 23:00 100.7 F H 10/02/17 22:00 101.9 F H 18 Weight Admit Weight 146 lb Weight 165 lb 5.547 oz Most Recent Monitor Data Heart Rate from ECG 93 NIBP 128/71 NIBP BP-Mean 110 Respiration from ECG 12 SpO2 100 I&O: 10/02/17 10/03/17 10/04/17 06:59 06:59 06:59 Intake Total 952 4431 Output Total 860 1203 310 Balance 92 3228 -310 Result Diagrams: 10/02/17 05:51 10/03/17 06:15 Phys Exam - Physical Examination HEENT: PERRLA Respiratory: no wheezing, no rales, no rhonchi, clear to auscultation bilateral Cardiovascular: RRR, no significant murmur Gastrointestinal: soft, non-tender, positive bowel sounds Musculoskeletal: no edema Dx/Plan (1) ICH (intracerebral hemorrhage) Code(s): I61.9 - NONTRAUMATIC INTRACEREBRAL HEMORRHAGE, UNSPECIFIED Status: Acute (2) Cerebral aneurysm rupture Code(s): I60.9 - NONTRAUMATIC SUBARACHNOID HEMORRHAGE, UNSPECIFIED Status: Acute (3) CAD (coronary artery disease) Code(s): I25.10 - ATHSCL HEART DISEASE OF [place] CORONARY ARTERY W/O ANG PCTRS Status: Acute (4) Hypertension Code(s): I10 - ESSENTIAL (PRIMARY) HYPERTENSION Status: Acute Qualifiers: Hypertension type: essential hypertension Qualified Code(s): I10 - Essential (primary) hypertension - Plan * Ruptured cerebral aneurysm with an acute ICH- patient will go for coiling of the aneurysm today * HTN- her blood pressure is within an acceptable range * AFIB- her heart rate is controlled on Cardizem * CAD- stable.
[2017-10-03] MEDS ORDERED: Morphine 4 MG/ML Carpuject SLOW IVP PRN (11:15)
--- NOTE | 2017-10-03 11:31 | PRG ---
DATE OF SERVICE: 10/03/2017 Ms. Griffin was tentatively scheduled to go down for an aneurysm coiling today. She is afebrile, She d id have a temperature to 102.7 yesterday. Cultures were drawn. Blood cultures are negative so far. Spinal fluid has not been cultured, will defer this to Neurosurgery. PHYSICAL EXAMINATION: VITAL SIGNS: Blood pressure 128/71, respiratory rates 18, heart rates in the 90s. She remains in si nus rhythm. Intake and output is positive 3228. CSF drainage is 143 mL recorded. Workman output was about 60 mL. LUNGS: Her lungs are clear. HEART: Regular rhythm. S1 and S2 are normal. ABDOMEN: Soft. EXTREMITIES: Without clubbing, cyanosis, or edema. LABORATORY DATA: White count 22.1, hemoglobin 11.4, she had 78 neutrophils, 7% bands. Sodium 139, potassium 3.5, chloride 111, bicarbonate 16, BUN 20, creatinine 1.25. PH 7.51, CO2 22, p O2 74. IMPRESSION: 1. Respiratory failure associated with an aneurysmal bleed for coiling today. 2. Increased intracranial pressure leading to obtundation and intubation yesterday. 3. Vomiting with no clinical evidence of aspiration. She needs daily chest radiographs in my opinio n. 4. Do not resuscitate status per family. 5. Fever. On Ancef for skin prophylaxis with a ventriculostomy. If she has recurrent fever, I woul d consider adding broad antimicrobial cultures. Blood cultures so far are negative. Critical care time was 30 minutes.
[2017-10-03] MEDS: Acetaminophen 325 MG TAB PO PRN ×2 (12:48→20:04)
--- NOTE | 2017-10-03 16:35 | EKG ---
Test Reason : Blood Pressure : / mmHG Vent. Rate : 091 BPM Atrial Rate : 110 BPM P-R Int : 000 ms QRS Dur : 072 ms QT Int : 468 ms P-R-T Axes : 000 -03 -05 degrees QTc Int : 575 ms Atrial fibrillation Low voltage QRS Nonspecific ST and T wave abnormality Prolonged QT Abnormal ECG When compared with ECG of 01-OCT-2017 09:34, (Unconfirmed) Atrial fibrillation has replaced Sinus rhythm Nonspecific T wave abnormality now evident in Lateral leads QT has lengthened Confirmed by DR. Clayton BUCKLEY ([id number]) on 10/03/2017 4:35:38 PM Referred By: Confirmed By:DR. Clayton BUCKLEY
[2017-10-03] MEDS: Famotidine/PF 20 mg/2ml Vial SLOW IVP SCH (20:02)
[2017-10-04] MEDS: niMODipine 30 MG CAP PO SCH ×6 (01:03→20:10)
[2017-10-04] MEDS: CEFAZOLIN/Water 2 GM/20 ML SYRINGE SLOW IVP SCH ×3 (01:03→17:30)
[2017-10-04] MEDS: Propofol 1,000 MG/100 ML VIAL IV PRN (05:14)
[2017-10-04 05:24] LABS: Anion Gap 14 mmol/L (10-20); BUN (Urea Nitrogen) 16 mg/dL (9.8-20.1); Calc. Creatinine Clearance 56 mL/min (70-130); Calcium 7.9 mg/dL (7.8-10.44); Carbon Dioxide 16 mmol/L (23-31); Chloride 113 mmol/L (98-107); Estimated GFR-MDRD 54; Glucose 114 mg/dL (83-110); Potassium 3.6 mmol/L (3.5-5.1); Sodium 139 mmol/L (136-145)
[2017-10-04] MEDS ORDERED: Iopamidol 370 76% 100 ML VIAL ONE (06:59)
--- NOTE | 2017-10-04 07:15 | PRG ---
DATE OF SERVICE: 10/04/2017 Ms. Griffin is a 77-year-old female that presented with a subarachnoid hemorrhage. She had a CT angio gram which showed abnormality of the right MCA bifurcation region which may represent aneurysm. Over the course of her hospitalization so far, she has developed hydrocephalus requiring placement of joo triculostomy. She also became less responsive neurologically requiring intubation. Dr. Johnston con sulting me to perform a cerebral angiogram. This was planned earlier in the week, but secondary to c hanges in her kidney function and a bump in her creatinine we deferred angiography with potential angela atment until that normalized. This morning she has a normal creatinine and our plan will be to bring her down for cerebral angiography with the potential for a coil embolization of aneurysm. Neurologi reyna Ms. Griffin has not changed much over the past 24 hours. She does not follow commands. She does localize. I have discussed the plan and updated the family on a daily basis with respect to angiogr aphy. I have also discussed with them all the risks, benefits, and alternatives to treatment and the y have provided informed consent.
[2017-10-04] MEDS: Sodium Chloride 0.9% 1,000 ML IV SCH ×3 (08:00→20:11)
[2017-10-04] MEDS ORDERED: PROPOFOL 200 MG/20 ML VIAL ONE (08:21)
--- NOTE | 2017-10-04 08:29 | CT ---
PRELIMINARY REPORT/[facility]/EMERGENCY AFTER HOURS PROCEDURE: EXAM: CT Head Without Intravenous Contrast EXAM DATE/TIME: 10/04/2017 6:39 AM CLINICAL HISTORY: 77 years old, female; Signs and symptoms; Other: Change in mental status; F/u sah; Patient HX: . Pt h as HX of sah. Pt has change in mental status. Pt has ventriculostomy in place TECHNIQUE: Axial computed tomography images of the head/brain without intravenous contrast. All CT scans at this facility use one or more dose reduction techniques, viz.: automated exposure control; ma/kV adjustme nt per patient size (including targeted exams where dose is matched to indication; i.e. head); or ite rative reconstruction technique. COMPARISON: CT Brain WO Con 2017-10-02 05:03 FINDINGS: Brain: Diffuse subarachnoid hemorrhage again noted, slightly improving since previous exam. No signif icant white matter disease. Ventricles: Interval appearance of a ventriculostomy catheter entering the right frontal lobe with ti p in the right frontal horn. Stable hydrocephalus. Increasing layering hemorrhage in the lateral vent ricles. Bones/joints: Unremarkable. No acute fracture. Soft tissues: Unremarkable. Sinuses: Moderate paranasal sinus opacification appearing with air-fluid levels. Mastoid air cells: Unremarkable as visualized. No mastoid effusion. IMPRESSION: 1. Diffuse subarachnoid hemorrhage again noted, slightly improving since previous exam. 2. Interval appearance of a ventriculostomy catheter entering the right frontal lobe with tip in the right frontal horn. Stable hydrocephalus. 3. Moderate paranasal sinus opacification appearing with air-fluid levels. Thank you for allowing us to participate in the care of your patient. Dictated and Authenticated by: Glenys Crawford MD 10/04/2017 7:07 AM Central Time ([place] & [place]) FINAL REPORT HEAD CT WITHOUT CONTRAST: Date: 10/04/17 COMPARISON: 10/02/17. HISTORY: Intracranial hemorrhage, change in mental status. FINDINGS: I agree with the preliminary report given by [place]. There is partial opacification of the sphenoid sin uses, maxillary sinuses, and ethmoid air cells. There is a ventriculostomy tube inserted via a right frontal approach, terminating within the medial aspect of mid body right lateral ventricle. Diffuse s ubarachnoid hemorrhage is noted, most prominent in the suprasellar region and the sylvian fissure on the right. The degree of subarachnoid hemorrhage has improved since the 10/02/17 exam. There is blood layering within bilateral lateral ventricles posteriorly, increased. There is slight hypodensity adj acent to the ventricular system, suggesting a degree of subependymal flow of CSF, slightly worsened. The effacement of the basilar cistern seen on the prior examination has improved. The diffuse ventric ulomegaly seen on the prior examination is similar. IMPRESSION: Subarachnoid blood with ventriculomegaly, intraventricular hemorrhage, and transependymal flow of CSF as detailed above. POS: MIL[place]
--- NOTE | 2017-10-04 08:35 | RAD ---
PORTABLE CHEST 1 VIEW: Date: 10/04/17 Time: 0452 hours HISTORY: Respiratory failure. FINDINGS/IMPRESSION: Comparison made with exam dated 06/28/17. There is an endotracheal tube with tip about 2.5 cm above the level of the cm. Nasogastric tube c an be traced into the stomach. The heart size is enlarged. There is continued elevation of the right hemidiaphragm. No lobar consolidation, definite pneumothorax, or large effusions are seen. POS: OFF
[2017-10-04 09:23] LABS: #Basophils 0.1 thou/uL (0.0-0.2); #Eosinphils 0.2 thou/uL (0.0-0.7); #Lymphocytes 1.5 thou/uL (1.20-3.40); #Monocytes 1.5 thou/uL (0.11-0.59); #Neutrophils 16.9 thou/uL (1.40-6.50); %Basophils 0.3 % (0.0-1.0); %Lymphocytes 7.4 % (21.0-51.0); %Monocytes 7.3 % (0.0-10.0); %Neutrophils 84.1 % (42.0-75.0); Hemoglobin 11.5 g/dL (12.0-16.0); Mean Corpuscular HGB CONC 31.9 g/dL (32.0-36.0); Mean Corpuscular Hemoglobin 28.2 pg (27.0-31.0); Mean Corpuscular Volume 88.3 fl (81.0-99.0); Platelet Count 297 thou/uL (130-400); RBC Distribution Width 13.2 % (11.5-14.5); Red Blood Cell (RBC) Count 4.08 mill/uL (4.20-5.40); White Blood Cell (WBC) Count 20.1 thou/uL (4.8-10.8)
--- NOTE | 2017-10-04 10:00 | PDOC.PN ---
- Subjective Encounter Start Date: 10/04/17 Encounter Start Time: 09:58 Ms. Gonsales was seen today in follow-up. She is intubated and sedated. - Objective Resuscitation Status: Resuscitation Status DNR:Do Not Resuscitate MAR Reviewed: Yes Vital Signs & Weight: Vital Signs (12 hours) Temp Pulse Resp BP 10/04/17 08:00 99.1 F 10/04/17 07:00 98.0 F 10/04/17 06:52 66 146/51 H 10/04/17 06:00 16 10/04/17 04:00 99.3 F 16 10/04/17 02:14 59 L 118/41 L 10/04/17 02:00 14 10/04/17 01:00 99.1 F 10/04/17 00:00 19 10/03/17 22:21 61 132/58 L 10/03/17 22:00 12 Weight Admit Weight 146 lb Weight 166 lb 0.129 oz Most Recent Monitor Data Heart Rate from ECG 76 NIBP 139/50 NIBP BP-Mean 72 Respiration from ECG 19 SpO2 99 I&O: 10/03/17 10/04/17 10/05/17 06:59 06:59 06:59 Intake Total 4431 2578.3 Output Total 1203 1788 57 Balance 3228 790.3 -57 Result Diagrams: 10/04/17 08:50 10/04/17 04:40 Phys Exam - Physical Examination HEENT: PERRLA Respiratory: no wheezing, no rales, clear to auscultation bilateral Cardiovascular: RRR, no significant murmur, no rub Gastrointestinal: soft, positive bowel sounds Musculoskeletal: no edema Dx/Plan (1) ICH (intracerebral hemorrhage) Code(s): I61.9 - NONTRAUMATIC INTRACEREBRAL HEMORRHAGE, UNSPECIFIED Status: Acute (2) Cerebral aneurysm rupture Code(s): I60.9 - NONTRAUMATIC SUBARACHNOID HEMORRHAGE, UNSPECIFIED Status: Acute (3) CAD (coronary artery disease) Code(s): I25.10 - ATHSCL HEART DISEASE OF [place] CORONARY ARTERY W/O ANG PCTRS Status: Acute (4) Hypertension Code(s): I10 - ESSENTIAL (PRIMARY) HYPERTENSION Status: Acute Qualifiers: Hypertension type: essential hypertension Qualified Code(s): I10 - Essential (primary) hypertension - Plan * Cerebral Aneurysm rupture with ICH- she is s/p Vetriculostomy and coil procedure is planned for today. * She remains intubated * HTN- blood pressure has been within an acceptable range
--- NOTE | 2017-10-04 11:28 | PRG ---
DATE OF SERVICE: 10/04/2017 Ms. Griffin's mental status apparently declined overnight. Her ventriculostomy drainage was changed th is morning. She is tentatively on the schedule today for coiling of her aneurysm. I met with the family and answered all their questions. PHYSICAL EXAMINATION: VITAL SIGNS: Currently blood pressure 145/56, heart rate 75. She is afebrile, respiratory rate is 1 5. LUNGS: Clear. HEART: Regular rhythm. S1 and S2 are normal. ABDOMEN: Soft and nontender. EXTREMITIES: Without clubbing, cyanosis, or edema. She is sedated for ventilation at this time. Chest radiograph shows no alveolar infiltrates. IMPRESSION: 1. Subarachnoid bleed secondary to aneurysm. 2. Hydrocephalus leading to a change in mental status and ventriculostomy several mornings back. 3. Acute on chronic kidney disease. 4. Tentatively for aneurysm coiling today. 5. Ongoing requirement for CSF drainage. CSF out over 24 hours prior to today was 207 mL. The family is very clear they do not want her just left intubated. Hopefully, we will see some neuro logical improvement over the next few days, so we can consider weaning from mechanical ventilation. Over the weekend she might be switched to a Precedex drip. Once the coiling procedure has been done to see how she does so she can be followed neurologically a little more closely. She did have a feve r that has resolved. She has not had recurrence of this fever, so her antibiotics have not been horner ged. Her blood cultures are negative that were drawn the day of the fever. She did vomit prior to intubation, but I saw no aspirated secretions at her tracheobronchial tree whe n I fiberoptically intubated her. Critical care time was 30 minutes.
[2017-10-04] MEDS ORDERED: Heparin 10,000 UNITS/1 ML VIAL ONE ×2 (11:34→13:22)
[2017-10-04] MEDS ORDERED: Lidocaine 1% (PF) 30 ML VIAL ONE (11:55)
[2017-10-04] MEDS ORDERED: Fentanyl 250 MCG/5 ML VIAL ONE (12:17)
[2017-10-04] MEDS ORDERED: Propofol 500 MG/50 ML VIAL ONE (12:26)
[2017-10-04] MEDS: Famotidine/PF 20 mg/2ml Vial SLOW IVP SCH (20:11)
[2017-10-04] MEDS: Labetalol HCl 100 MG/20 ML VIAL SLOW IVP PRN ×2 (22:32→23:49)
[2017-10-05] MEDS: Propofol 1,000 MG/100 ML VIAL IV PRN (00:28)
[2017-10-05] MEDS: CEFAZOLIN/Water 2 GM/20 ML SYRINGE SLOW IVP SCH ×3 (00:45→18:22)
[2017-10-05] MEDS: niMODipine 30 MG CAP PO SCH ×6 (00:45→22:51)
[2017-10-05] MEDS: Labetalol HCl 100 MG/20 ML VIAL SLOW IVP PRN (00:48)
[2017-10-05 05:05] LABS: Anion Gap 16 mmol/L (10-20); BUN (Urea Nitrogen) 15 mg/dL (9.8-20.1); Calc. Creatinine Clearance 66 mL/min (70-130); Calcium 8.2 mg/dL (7.8-10.44); Carbon Dioxide 15 mmol/L (23-31); Chloride 111 mmol/L (98-107); Estimated GFR-MDRD 66; Glucose 106 mg/dL (83-110); Potassium 3.7 mmol/L (3.5-5.1); Sodium 138 mmol/L (136-145)
--- NOTE | 2017-10-05 08:21 | PDOC.PN ---
- Subjective Encounter Start Date: 10/05/17 Encounter Start Time: 08:17 Ms. Gonsales was see today in follow-up. She is intubated, and sedated - Objective Resuscitation Status: Resuscitation Status DNR:Do Not Resuscitate MAR Reviewed: Yes Vital Signs & Weight: Vital Signs (12 hours) Temp Pulse Resp BP 10/05/17 07:01 83 176/61 H 10/05/17 06:00 15 10/05/17 04:00 98.5 F 18 10/05/17 02:09 82 10/05/17 02:00 18 10/05/17 01:00 97.9 F 10/05/17 00:48 89 188/69 H 10/05/17 00:00 24 H 10/04/17 23:49 89 183/68 H 10/04/17 23:00 98.2 F 10/04/17 22:47 77 167/65 H 10/04/17 22:32 90 191/75 H 10/04/17 22:00 30 H 10/04/17 21:00 99.0 F Weight Admit Weight 146 lb Weight 164 lb 7.437 oz Most Recent Monitor Data Heart Rate from ECG 93 NIBP 171/67 NIBP BP-Mean 86 Respiration from ECG 21 SpO2 100 I&O: 10/04/17 10/05/17 10/06/17 06:59 06:59 06:59 Intake Total 2578.3 2879.6 Output Total 1788 2715 Balance 790.3 164.6 Result Diagrams: 10/04/17 08:50 10/05/17 04:15 Phys Exam - Physical Examination HEENT: PERRLA Respiratory: no wheezing, no rales, no rhonchi, clear to auscultation bilateral Cardiovascular: RRR, no significant murmur Gastrointestinal: soft, positive bowel sounds Musculoskeletal: no edema Dx/Plan (1) ICH (intracerebral hemorrhage) Code(s): I61.9 - NONTRAUMATIC INTRACEREBRAL HEMORRHAGE, UNSPECIFIED Status: Acute (2) Cerebral aneurysm rupture Code(s): I60.9 - NONTRAUMATIC SUBARACHNOID HEMORRHAGE, UNSPECIFIED Status: Acute (3) CAD (coronary artery disease) Code(s): I25.10 - ATHSCL HEART DISEASE OF [place] CORONARY ARTERY W/O ANG PCTRS Status: Acute (4) Hypertension Code(s): I10 - ESSENTIAL (PRIMARY) HYPERTENSION Status: Acute Qualifiers: Hypertension type: essential hypertension Qualified Code(s): I10 - Essential (primary) hypertension - Plan * Cerebral Aneurysm Rupture with acute ICH- she is s/p Ventriculostomy , and coiling procedure * Continue as per Neurosurgery * HTN- she was started back on the Cardene drip, and her systolics habe been ranging between 150-160 * Consider starting tube feeds for nutritional support.
[2017-10-05] MEDS: Sodium Chloride 0.9% 1,000 ML IV SCH ×2 (09:14→13:15)
--- NOTE | 2017-10-05 11:13 | RAD ---
RADIOGRAPH CHEST 1 VIEW: Date: 10/05/17. Time: 5:29 a.m. HISTORY: A 77-year-old female in respiratory failure. COMPARISON: 10/04/17, 4:52 a.m. FINDINGS: The previous image was degraded by overlying external meshlike pattern throughout the entire image. That is no longer present. Currently there is effacement of right lateral costophrenic angle, and il l-defined right hemidiaphragmatic border, partially obscured by multiple loops of ECG leads. Endotra cheal tube and NG tube remain in place. No pulmonary edema. The left lung is clear, and the rest of the right lung is clear. No pneumothorax. The left lateral costophrenic angle is sharp. IMPRESSION: 1. Nonspecific changes at the right lung base, possibly representing a small right pleural effusion and underlying right basilar airspace opacity. 2. The rest of the lungs are clear. 3. Otherwise, no interval change. JANICE [] POS: [place]
[2017-10-05] MEDS ORDERED: Sodium Chloride 0.9% 1,000 ML IV SCH (13:33)
--- NOTE | 2017-10-05 13:40 | PRG ---
DATE OF SERVICE: 10/05/2017 SERVICE: Pulmonary Medicine. INTERVAL HISTORY: The patient is actually doing a little better from a cardiovascular and respirator y standpoint. She cannot provide additional elements of the history. Otherwise, there were no signi ficant overnight events. Apparently, her brain is coming around a little bit. She has made some sma ll neurologic recovery over the last 24 hours. OBJECTIVE: VITAL SIGNS: Afebrile with a T-max of 101.8. Pulse 84, blood pressure 171/49, respirations 25, satu ration 100% on 23% FiO2 and a PEEP of 5. GENERAL: The patient is intubated. She was gently sedated last night, but this morning, she has bee n off sedation since 0. HEENT: Normocephalic. Sclerae are white. Conjunctivae pink. Oral and mucosa is moist and without lesions. LUNGS: Decent air entry. There is no prolonged expiratory phase or wheezing. HEART: Normal rate, regular. ABDOMEN: Soft, nontender, nondistended. Bowel sounds positive. MUSCULOSKELETAL: No cyanosis or clubbing. There is no pitting in the bilateral lower extremities. NEUROLOGIC: She localizes and spontaneously moves her right upper and lower extremities. She also m oves her left upper and lower extremities, but typically with noxious stimuli. She will open her eye s, but does not attend. She is overbreathing the ventilator comfortably. LABORATORY DATA: WBC 20.1, hemoglobin 11.5, platelets 297,000. INR 1.1. Basic metabolic profile is completely unremarkable except for a chloride of 111, bicarbonate 15, anion gap is increasing to 16. Blood cultures x2 are unremarkable. In's and out's are positive 4 liters over the past 4 days. IMAGING: Chest x-ray demonstrates right lung base infiltrate versus atelectasis. Pleural effusion i s possible in that area. Otherwise, there is no acute cardiopulmonary abnormality. Endotracheal tub e remains in good position. Enteric catheter is coursing below the level of the diaphragm. ASSESSMENT: 1. Acute hypoxic respiratory failure. 2. Subarachnoid hemorrhage complicated by hydrocephalus, resulting in placement of ventriculostomy d rain. 3. Acute kidney injury, resolved. 4. Severe sepsis. 5. Possible community-acquired pneumonia. DISCUSSION AND PLAN: I will empirically start some antibiotics directed at lung issues. I will barney culture the patient including sputum, blood, and urine. The patient will remain on mechanical ventil ation until she wakes up a touch more. IV fluids are going to be interrupted and will switch everyth ing over to free water flushes and/or tube feed Pulmonary Critical Care will continue to follow. CRITICAL CARE TIME: 30 minutes.
[2017-10-05] MEDS: Ibuprofen 100 MG/5 ML UDCUP PO PRN (14:55)
[2017-10-05] MEDS: Vancomycin HCl 1.25 GM in Sodium Chloride 0.9% 250 ML 250 ML IVPB SCH (14:55)
--- NOTE | 2017-10-05 15:33 | EKG ---
Test Reason : ER INDICATION Blood Pressure : / mmHG Vent. Rate : 075 BPM Atrial Rate : 075 BPM P-R Int : 182 ms QRS Dur : 082 ms QT Int : 410 ms P-R-T Axes : 030 -24 -03 degrees QTc Int : 457 ms Normal sinus rhythm Moderate voltage criteria for LVH, may be normal variant Nonspecific ST and T wave abnormality Abnormal ECG Confirmed by TRISHA MUNOZ ([id number]), editor sound FAVIO DE LEÓN ([id number]) on 10/05/2017 3:33:22 PM Referred By: Confirmed By:TRISHA MUNOZ
[2017-10-05] MEDS: Piperacillin/Tazobactam 3.375 GM in Sodium Chloride 0.9% 100 ML IVPB SCH (17:59)
--- NOTE | 2017-10-05 18:07 | CCL ---
DATE OF PROCEDURE: 10/04/2017. SURGEONS Humza Cummings M.D. SCRAP STRIPPER HAND: None. INDICATION: Subarachnoid hemorrhage. DIAGNOSIS: Aneurysmal subarachnoid hemorrhage. PROCEDURES: Diagnostic cerebral angiography with coil embolization of aneurysm. PROCEDURE IN DETAIL: The patient was brought into the angiogram suite already intubated and with ventriculostomy in place . She was clamped for transport and then was opened and at 10 cm of water once positioned on the tab le. She remains under general anesthesia during the case and was more heavily sedated and paralyzed. Both groins were then prepped and draped in the usual sterile fashion. 1% lidocaine was used to inj ect the right groin. A 5 [place]ian micropuncture set was used to gain access to the right common femora l artery. Using the Seldinger technique, a 5-[place]uvian sheath was placed. A 5-Peruvian diagnostic cathet er was placed over a SourceClear guidewire and advanced into the aortic arch for the right internal carot id artery was selectively catheterized. An AP and lateral as well as a 3D rotational angiogram perfo rmed. After identification of an aneurysm, the sheath and catheters were exchanged for a 5 [place] Didi-Dachetle select catheter which was passed over a long diagnostic catheter which was passed over an 0.035 angled Glidewire, which was again placed within the right internal carotid artery. [place] 10 micro catheter was passed over transcend micro guidewire and advanced through to a PCOM region aneurysm whi ch measured 3.8 x 3.6 x 3 mm in dimension. There was a more distal daughter sac present. The aneury sm was coil embolized until there was stasis of flow into the distal dural sac as well as within the aneurysm. Control angiogram was performed in AP and lateral planes to ensure parent vessels were renee ling appropriately. All catheters were then removed. Hemostasis was maintained with manual compress ion. The patient was not anticoagulated during the case and there were no known procedure complicati ons. IMPRESSION: The patient underwent successful diagnostic angiography. A PCOM region aneurysm was identified on th e right side which underwent successful coil embolization. The right MCA trifurcation region reveale d a bulbous portion of the trifurcation, but no aneurysm, perhaps just a dolichoectasia. This was no t treated.
[2017-10-05] MEDS ORDERED: Vancomycin HCl 1 GM in Premix Bag 1 BAG IVPB SCH (21:00)
[2017-10-05] MEDS: Famotidine/PF 20 mg/2ml Vial SLOW IVP SCH (22:51)
[2017-10-06] MEDS: Piperacillin/Tazobactam 3.375 GM in Sodium Chloride 0.9% 100 ML IVPB SCH ×4 (00:12→17:54)
[2017-10-06] MEDS: Ondansetron HCl/PF 4 MG/2 ML Vial IVP PRN ×2 (00:35→09:14)
[2017-10-06] MEDS: CEFAZOLIN/Water 2 GM/20 ML SYRINGE SLOW IVP SCH ×3 (02:56→16:44)
[2017-10-06] MEDS: niMODipine 30 MG CAP PO SCH ×6 (03:00→21:05)
[2017-10-06] MEDS: Ibuprofen 100 MG/5 ML UDCUP PO PRN ×3 (04:32→21:05)
[2017-10-06 04:37] LABS: #Eosinphils 0.1 thou/uL (0.0-0.7); #Monocytes 1.3 thou/uL (0.11-0.59); #Neutrophils 11.1 thou/uL (1.40-6.50); %Basophils 0.1 % (0.0-1.0); %Eosinophils 0.4 % (0.0-10.0); %Lymphocytes 7.5 % (21.0-51.0); %Monocytes 9.7 % (0.0-10.0); %Neutrophils 82.4 % (42.0-75.0); Mean Corpuscular HGB CONC 33.9 g/dL (32.0-36.0); Mean Corpuscular Hemoglobin 28.7 pg (27.0-31.0); Mean Corpuscular Volume 84.6 fl (81.0-99.0); Mean Platelet Volume 7.5 fL (7.4-10.4); Platelet Count 317 thou/uL (130-400); RBC Distribution Width 13.2 % (11.5-14.5); Red Blood Cell (RBC) Count 3.48 mill/uL (4.20-5.40); White Blood Cell (WBC) Count 13.4 thou/uL (4.8-10.8)
[2017-10-06 05:02] LABS: Anion Gap 12 mmol/L (10-20); BUN (Urea Nitrogen) 17 mg/dL (9.8-20.1); Calc. Creatinine Clearance 65 mL/min (70-130); Calcium 8.6 mg/dL (7.8-10.44); Carbon Dioxide 18 mmol/L (23-31); Chloride 109 mmol/L (98-107); Estimated GFR-MDRD 65; Glucose 134 mg/dL (83-110); Magnesium 1.8 mg/dL (1.6-2.6); Sodium 136 mmol/L (136-145)
[2017-10-06 05:05] LABS: Phosphorus 1.9 mg/dL (2.3-4.7)
[2017-10-06] MEDS ORDERED: Potassium Chloride 40 MEQ in Sodium Chloride 0.9% 250 ML 250 ML IVPB SCH ×2 (06:00→12:00)
[2017-10-06] MEDS ORDERED: Potassium Phosphate 30 MMOL in Sodium Chloride 0.9% 500 ML IVPB SCH (06:15)
[2017-10-06] MEDS ORDERED: Metoclopramide HCl 10 MG/2 ML VIAL IVP PRN (08:07)
--- NOTE | 2017-10-06 08:07 | PDOC.PN ---
- Subjective Encounter Start Date: 10/06/17 Encounter Start Time: 08:01 Ms. Gonsales is becoming more responsive. She will crinkle her forehead, and is is reported that she will squeeze your hand. - Objective Resuscitation Status: Resuscitation Status DNR:Do Not Resuscitate MAR Reviewed: Yes Vital Signs & Weight: Vital Signs (12 hours) Temp Pulse Resp BP 10/06/17 06:32 83 165/65 H 10/06/17 06:00 15 10/06/17 05:00 100.5 F H 10/06/17 04:00 100.5 F H 19 10/06/17 02:26 98 10/06/17 02:00 17 10/06/17 01:00 100.2 F H 10/06/17 00:00 18 10/05/17 23:00 100.5 F H 10/05/17 22:43 77 163/56 H 10/05/17 22:00 16 Weight Admit Weight 146 lb Weight 162 lb 0.636 oz Most Recent Monitor Data Heart Rate from ECG 71 NIBP 156/55 NIBP BP-Mean 107 Respiration from ECG 15 SpO2 100 I&O: 10/05/17 10/06/17 10/07/17 06:59 06:59 06:59 Intake Total 2879.6 3223 Output Total 2715 3067 50 Balance 164.6 156 -50 Result Diagrams: 10/06/17 04:15 10/06/17 04:15 Phys Exam - Physical Examination HEENT: PERRLA Respiratory: no wheezing + rales at the base Cardiovascular: RRR, no significant murmur, no rub Gastrointestinal: soft, non-tender, positive bowel sounds Musculoskeletal: edema present Dx/Plan (1) ICH (intracerebral hemorrhage) Code(s): I61.9 - NONTRAUMATIC INTRACEREBRAL HEMORRHAGE, UNSPECIFIED Status: Acute (2) Cerebral aneurysm rupture Code(s): I60.9 - NONTRAUMATIC SUBARACHNOID HEMORRHAGE, UNSPECIFIED Status: Acute (3) CAD (coronary artery disease) Code(s): I25.10 - ATHSCL HEART DISEASE OF [place] CORONARY ARTERY W/O ANG PCTRS Status: Acute (4) Hypertension Code(s): I10 - ESSENTIAL (PRIMARY) HYPERTENSION Status: Acute Qualifiers: Hypertension type: essential hypertension Qualified Code(s): I10 - Essential (primary) hypertension - Plan * Cerebral Aneurysm Rupture with ICH and hydrocephalus s/p Ventriculostomy drain and coiling- neurologically she is improving * HTN- blood pressure has been maintained with a low dose Cardene drip * Possible Community acquired Pneumonia with sepsis- ( she has fever, leukocytosis, and metabolic acidosis)- Zosyn and Vancomycin have been added * Nutritional Support- Tube feeds are on hold due to some vomiting. - will add reglan as needed * Continue Vent support- weaning as per Critical Care team.
[2017-10-06] MEDS ORDERED: Magnesium 2 GM/NS 0.9% 100 ML 2 GM in Premix Bag 1 BAG IVPB SCH (12:00)
--- NOTE | 2017-10-06 12:39 | PRG ---
DATE OF SERVICE: 10/06/2017 SERVICE: Pulmonary Medicine. INTERVAL HISTORY: The patient is doing really well from a cardiovascular and respiratory standpoint. She is really making good progress from a mentation standpoint. This morning, I found her a little somnolent, but she wakes up very easily with gentle stimulation. She moves all four extremities. She is following all commands. She indicates that she is not having any significant distress other than a little headache. She is also having some nausea. The nausea has been refractory to Zofran and Reglan. PHYSICAL EXAMINATION: VITAL SIGNS: Afebrile, pulse 66, blood pressure 152/96, respirations 10 and saturation 97% on room air. GENERAL: The patient is awake and alert in no apparent distress. LUNGS: Excellent air entry. There is no prolonged expiratory phase. HEART: Normal rate and regular. ABDOMEN: Soft, nontender and nondistended. Bowel sounds are positive. MUSCULOSKELETAL: No cyanosis or clubbing. There is no pitting in the bilateral lower extremities. NEUROLOGIC: Grossly nonfocal. LABORATORY DATA: WBC 13.4, hemoglobin 10.0 and platelets 317,000. Phosphorus 1.9, magnesium 1.8 and potassium 3.0. She got 30 mmol of K-Phos this morning. Bicarbonate has improved to 18 and anion gap is resolving. Sodium specifically is excellent at 136. Blood cultures x4, respiratory culture, urine culture are all negative to date. ASSESSMENT: 1. Acute hypoxic respiratory failure. 2. Subarachnoid hemorrhage, complicated by hydrocephalus, resulting in placement of the external ventricular drain. 3. Severe sepsis. 4. Community-acquired pneumonia, possible. PLAN: We will continue our antibiotics for a total duration of 5 days. Diallo culture is currently pending. The patient's mentation is actually improving significantly over the past 24 hours. That being said, at this point, I do think that it still prevents us from extubating her safely. She has nasotracheal tube in place. There was significant trauma associated with that and some bleeding is expected when the tube is removed. I am not certain that she can protect her airway at this moment. We will continue other supportive measures. CRITICAL CARE TIME: 30 minutes. TIFFANY
[2017-10-06] MEDS: Vancomycin HCl 1.25 GM in Sodium Chloride 0.9% 250 ML 250 ML IVPB SCH (14:26)
[2017-10-06] MEDS: Acetaminophen 325 MG TAB PO PRN (16:39)
[2017-10-06] MEDS: Labetalol HCl 100 MG/20 ML VIAL SLOW IVP PRN (16:46)
[2017-10-06] MEDS: Sodium Chloride 0.9% 1,000 ML IV SCH (18:10)
[2017-10-06] MEDS ORDERED: Clopidogrel Bisulfate 75 MG TAB ONE (20:50)
[2017-10-06] MEDS: Famotidine/PF 20 mg/2ml Vial SLOW IVP SCH (21:05)
[2017-10-07] MEDS: Piperacillin/Tazobactam 3.375 GM in Sodium Chloride 0.9% 100 ML IVPB SCH ×5 (00:44→23:16)
[2017-10-07] MEDS: Acetaminophen 325 MG TAB PO PRN ×2 (00:44→20:54)
[2017-10-07] MEDS: niMODipine 30 MG CAP PO SCH ×6 (00:44→20:55)
[2017-10-07] MEDS: CEFAZOLIN/Water 2 GM/20 ML SYRINGE SLOW IVP SCH ×2 (00:44→08:16)
[2017-10-07 05:14] LABS: #Eosinphils 0.2 thou/uL (0.0-0.7); #Monocytes 1.1 thou/uL (0.11-0.59); #Neutrophils 8.5 thou/uL (1.40-6.50); %Basophils 0.2 % (0.0-1.0); %Eosinophils 1.7 % (0.0-10.0); %Lymphocytes 9.5 % (21.0-51.0); %Monocytes 10.2 % (0.0-10.0); %Neutrophils 78.5 % (42.0-75.0); Hemoglobin 9.4 g/dL (12.0-16.0); Mean Corpuscular Volume 85.2 fl (81.0-99.0); Mean Platelet Volume 7.4 fL (7.4-10.4); Platelet Count 300 thou/uL (130-400); RBC Distribution Width 13.3 % (11.5-14.5); Red Blood Cell (RBC) Count 3.22 mill/uL (4.20-5.40); White Blood Cell (WBC) Count 10.8 thou/uL (4.8-10.8)
[2017-10-07] MEDS: Sodium Chloride 0.9% 1,000 ML IV SCH ×2 (05:27→23:14)
[2017-10-07 05:39] LABS: Anion Gap 11 mmol/L (10-20); BUN (Urea Nitrogen) 12 mg/dL (9.8-20.1); Calc. Creatinine Clearance 67 mL/min (70-130); Calcium 7.7 mg/dL (7.8-10.44); Carbon Dioxide 18 mmol/L (23-31); Chloride 113 mmol/L (98-107); Estimated GFR-MDRD 68; Glucose 102 mg/dL (83-110); Magnesium 1.8 mg/dL (1.6-2.6); Phosphorus 2.3 mg/dL (2.3-4.7); Potassium 3.2 mmol/L (3.5-5.1); Sodium 139 mmol/L (136-145)
[2017-10-07] MEDS: Ibuprofen 100 MG/5 ML UDCUP PO PRN (08:16)
[2017-10-07] MEDS ORDERED: Potassium Chloride 40 MEQ in Sodium Chloride 0.9% 250 ML 250 ML IVPB SCH (09:00)
--- NOTE | 2017-10-07 09:08 | PDOC.PN ---
- Subjective Encounter Start Date: 10/07/17 Encounter Start Time: 09:07 Ms. Gonsales is intubated. She is awake, and trying to communicate. She indicates a mild headache, but some abdominal discomfort, and nausea. - Objective Resuscitation Status: Resuscitation Status DNR:Do Not Resuscitate MAR Reviewed: Yes Vital Signs & Weight: Vital Signs (12 hours) Temp Pulse Resp BP 10/07/17 08:00 100.1 F H 22 H 10/07/17 06:57 90 157/59 H 10/07/17 06:52 81 157/59 H 10/07/17 06:00 19 10/07/17 04:00 18 10/07/17 03:00 99.4 F 10/07/17 02:00 18 10/07/17 00:00 99 F 16 10/06/17 22:00 83 16 158/50 H Weight Admit Weight 146 lb Weight 155 lb 3.287 oz Most Recent Monitor Data Heart Rate from ECG 87 NIBP 176/72 NIBP BP-Mean 102 Respiration from ECG 19 SpO2 97 I&O: 10/06/17 10/07/17 10/08/17 06:59 06:59 06:59 Intake Total 3223 3194 Output Total 3067 4578 459 Balance 780 -9254 -979 Result Diagrams: 10/07/17 04:55 10/07/17 04:55 Phys Exam - Physical Examination HEENT: PERRLA Respiratory: no wheezing, no rales, no rhonchi, clear to auscultation bilateral Cardiovascular: RRR, no significant murmur Gastrointestinal: soft, positive bowel sounds + distended, tympanic to percussion Musculoskeletal: edema present + generalized edema Dx/Plan (1) ICH (intracerebral hemorrhage) Code(s): I61.9 - NONTRAUMATIC INTRACEREBRAL HEMORRHAGE, UNSPECIFIED Status: Acute (2) Cerebral aneurysm rupture Code(s): I60.9 - NONTRAUMATIC SUBARACHNOID HEMORRHAGE, UNSPECIFIED Status: Acute (3) CAD (coronary artery disease) Code(s): I25.10 - ATHSCL HEART DISEASE OF [place] CORONARY ARTERY W/O ANG PCTRS Status: Acute (4) Hypertension Code(s): I10 - ESSENTIAL (PRIMARY) HYPERTENSION Status: Acute Qualifiers: Hypertension type: essential hypertension Qualified Code(s): I10 - Essential (primary) hypertension - Plan * Cerebral Aneurysm Rupture with acute ICH- with hydrocephalus- she is s/p venticulostomy drain placement, and coiling procedure * She is intubated, but may be able to be weaned soon * HTN- blood pressure has remained in an acceptable range on Cardene, and PRN Labetalol * Pneumonia and sepsis- improving- sputum culture is growing MRSA- She is on Zosyn and Vancomycin * Hypokalemia- replace Potassium * Magnesium , and Phosphorus are replaced .
[2017-10-07] MEDS: Ondansetron HCl/PF 4 MG/2 ML Vial IVP PRN ×2 (09:20→20:55)
[2017-10-07] MEDS: Famotidine 20 MG TAB PO SCH ×2 (09:23→20:54)
--- NOTE | 2017-10-07 11:55 | PQF ---
CLINICAL DOCUMENTATION IMPROVEMENT CLARIFICATION FORM: ICD-10 Updated PLEASE DO AN ADDENDUM TO THE PROGRESS NOTE WITH ANY DOCUMENTATION UPDATES OR ADDITIONS AND CARRY THROUGH TO DC SUMMARY. THANK YOU. DATE: 10/07, 10/08 ATTN: DR. ZEESHAN PHILLIPS/ DR. Gigi PARISH Please exercise your independent, professional judgment in responding to the clarification form. Clinical indicators are provided on the bottom of this form for your review. Please check appropriate box(s): [ ] Aspiration Pneumonia [ ] Empirically treating Gram Negative Pneumonia [ ] Empirically treating Anaerobic Pneumonia [ X ] Pneumonia secondary to (specify organism / underlying disease) ___MRSA____ [ ] Community Acquired Pneumonia [ ] Other diagnosis [ ] Unable to determine In addition, please specify: Present on Admission (POA): [ x ] Yes [ ] No [ ] Unable to determine For continuity of documentation, please document condition throughout progress notes and discharge summary. Thank You. CLINICAL INDICATORS - SIGNS / SYMPTOMS / LABS PULMONOLOGY PN 10/02: SUBJECTIVE: VENTRICULOSTOMY HAD JUST BEEN PLACED WHEN I ARRIVED. ...SHE WAS NOT PROTECTING HER AIRWAY. ...I HAD RESPIRATORY THERAPY SET UP FOR FIBEROPTIC INTUBATION. ABOUT THAT TIME, SHE STARTED VOMITING. HER MOUTH WAS SUCTIONED CLEAR. ...NO ASPIRATED SECRETIONS WERE SEEN IN THE TRACHEOBRONCHIAL TREE WITH INSPECTION OF ALL OF HER LOBES. PULMONARY PN 10/03: IMPRESSION: 3. VOMITING W/NO CLINICAL EVIDENCE OF ASPIRATION PULMONARY PN 10/05 & 4: ASSESSMENT: 5. POSSIBLE COMMUNITY ACQUIRED PNEUMONIA HOSPITALIST PN 10/06: PLAN: POSSIBLE COMMUNITY ACQUIRED PNEUMONIA; PN 10/07: PNEUMONIA - SPUTUM CULTURE GROWING MRSA WBC: 22.1 (10/02) T: 102.7 (10/02) INTUBATED & ON VENT: 10/02 - PRESENT RISK FACTORS: ACUTE RUPTURED ANEURYSMAL SAH VOMITING DURING INTUBATION PROLONGED MECHANICAL VENT (10/02 - PRESENT) POSITIVE SPUTUM CULTURE FROM 10/05 (MRSA) TREATMENTS: IV ANTIBIOTICS (ZOSYN & VANCOMYCIN 10/05 - PRESENT; ANCEF 10/02 - PRESENT) CCU MONITORING (10/01 - PRESENT) PULMONARY CONSULT (10/01) THANK YOU! Karol (This form is maintained as a part of the permanent medical record) 2014 [employer]. All Rights Reserved Karol Collier RN, BSN [email or web address] Office: [phone] [facility]
[2017-10-07] MEDS ORDERED: ALPRAZolam 0.25 MG TAB PER TUBE SCH (12:15)
[2017-10-07] MEDS: ALPRAZolam 0.25 MG TAB PO SCH (12:20)
--- NOTE | 2017-10-07 13:48 | PRG ---
DATE OF SERVICE: 10/07/2017 Ms. Griffin is much more alert than she was on Saturday. Unfortunately, she does not pass a leak test. PHYSICAL EXAMINATION: VITAL SIGNS: Blood pressure 156/72, heart rate is 97, respiratory rates 18. She apparently had a fever over the weekend. MRSA was isolated from her sputum. She does not have an infiltrate on radiograph, suggests she has a Staphylococcus aureus pneumonia, although she does have some atelectatic changes at her right base. Her blood cultures are negative. Her CSF was not cultured. LUNGS: Her lungs are clear. HEART: Regular rhythm. S1 and S2 are normal. ABDOMEN: Abdomen is soft and nontender. EXTREMITIES: Without asymmetry. LABORATORY DATA: White count 10.8, hemoglobin 9.4, platelets 300,000. Sodium 139, potassium 3.2, chloride 113, bicarbonate 18, BUN 12, creatinine 0.82. IMPRESSION: Respiratory failure associated with subarachnoid bleed and hydrocephalus requiring emergent intubation nasally as she was vomiting. She will be placed on steroids 48 hours and reassess her on a daily basis for a leak. Hopefully we can extubate her. If she has some epistaxis after her endotracheal tube is removed we can always pack her left nare. TIFFANY
[2017-10-07 13:57] LABS: Vancomycin, Trough 7.9 ug/mL
[2017-10-07] MEDS: Vancomycin HCl 1.25 GM in Sodium Chloride 0.9% 250 ML 250 ML IVPB SCH (14:38)
[2017-10-07] MEDS: Metoclopramide HCl 10 MG TAB PO SCH ×2 (16:10→20:54)
[2017-10-07] MEDS: ALPRAZolam 0.25 MG TAB PER TUBE SCH (20:54)
[2017-10-08] MEDS: niMODipine 30 MG CAP PO SCH ×6 (00:15→20:07)
[2017-10-08] MEDS: Vancomycin HCl 1.25 GM in Sodium Chloride 0.9% 250 ML 250 ML IVPB SCH ×2 (01:15→15:04)
[2017-10-08] MEDS: Piperacillin/Tazobactam 3.375 GM in Sodium Chloride 0.9% 100 ML IVPB SCH ×3 (05:08→18:09)
[2017-10-08] MEDS: Ondansetron HCl/PF 4 MG/2 ML Vial IVP PRN ×2 (05:09→20:07)
[2017-10-08 05:26] LABS: #Lymphocytes 0.7 thou/uL (1.20-3.40); #Monocytes 0.3 thou/uL (0.11-0.59); #Neutrophils 8.3 thou/uL (1.40-6.50); %Basophils 0.3 % (0.0-1.0); %Eosinophils 0.2 % (0.0-10.0); %Lymphocytes 7.6 % (21.0-51.0); %Monocytes 3.1 % (0.0-10.0); %Neutrophils 88.9 % (42.0-75.0); Hemoglobin 10.8 g/dL (12.0-16.0); Mean Corpuscular HGB CONC 32.9 g/dL (32.0-36.0); Mean Corpuscular Hemoglobin 28.5 pg (27.0-31.0); Mean Corpuscular Volume 86.6 fl (81.0-99.0); Mean Platelet Volume 7.5 fL (7.4-10.4); Platelet Count 358 thou/uL (130-400); RBC Distribution Width 13.6 % (11.5-14.5); White Blood Cell (WBC) Count 9.3 thou/uL (4.8-10.8)
[2017-10-08 05:33] LABS: Anion Gap 15 mmol/L (10-20); BUN (Urea Nitrogen) 19 mg/dL (9.8-20.1); Calc. Creatinine Clearance 61 mL/min (70-130); Calcium 8.4 mg/dL (7.8-10.44); Carbon Dioxide 16 mmol/L (23-31); Chloride 109 mmol/L (98-107); Estimated GFR-MDRD 59; Glucose 166 mg/dL (83-110); Magnesium 2.1 mg/dL (1.6-2.6); Phosphorus 2.9 mg/dL (2.3-4.7); Potassium 3.9 mmol/L (3.5-5.1); Sodium 136 mmol/L (136-145)
[2017-10-08 07:12] LABS: CO2 Tension 25.4 mmHg (35.0-45.0); O2 Tension (PaO2) 91.8 mmHg (80.0-100.0); pH, Arterial 7.44 (7.35-7.45)
[2017-10-08 07:13] LABS: Hemoglobin (Hb) 9.6 g/dL (12.0-16.0)
[2017-10-08 07:14] LABS: Calcium, Ionized 1.1 mmol/L (1.12-1.30); Puncture Site LR
[2017-10-08] MEDS: Metoclopramide HCl 10 MG TAB PO SCH ×4 (07:31→20:08)
[2017-10-08] MEDS: Famotidine 20 MG TAB PO SCH ×2 (07:31→20:07)
[2017-10-08] MEDS: ALPRAZolam 0.25 MG TAB PER TUBE SCH (07:31)
--- NOTE | 2017-10-08 12:41 | PDOC.PN ---
- Subjective Encounter Start Date: 10/08/17 Encounter Start Time: 12:48 Subjective: Intubated, sedated. -: No acute events overnight. - Objective Resuscitation Status: Resuscitation Status DNR:Do Not Resuscitate MAR Reviewed: Yes Vital Signs & Weight: Vital Signs (12 hours) Temp Pulse Resp BP Pulse Ox 10/08/17 11:12 92 176/72 H 10/08/17 11:00 99.5 F 10/08/17 10:00 26 H 10/08/17 08:00 98.1 F 94 18 98 10/08/17 06:52 85 128/89 10/08/17 06:00 21 H 10/08/17 04:00 19 10/08/17 03:00 99.1 F 10/08/17 02:37 81 150/73 H 10/08/17 02:00 14 Weight Admit Weight 146 lb Weight 166 lb 0.129 oz Most Recent Monitor Data Heart Rate from ECG 99 NIBP 160/74 NIBP BP-Mean 97 Respiration from ECG 24 SpO2 97 I&O: 10/07/17 10/08/17 10/09/17 06:59 06:59 06:59 Intake Total 3194 4581 120 Output Total 4578 2317 370 Balance -1384 2264 -250 Result Diagrams: 10/08/17 04:13 10/08/17 04:13 Phys Exam - Physical Examination Constitutional: NAD HEENT: moist MMs, sclera anicteric, TM's clear, oral pharynx no lesions Neck: no JVD, supple Respiratory: no wheezing, no rales, no rhonchi, clear to auscultation bilateral Cardiovascular: RRR, no significant murmur, no rub Gastrointestinal: soft, non-tender, no distention, positive bowel sounds Musculoskeletal: no edema, pulses present Intubated and sedated. Unable to cooperate w exam Skin: no rash, normal turgor Dx/Plan (1) SAH (subarachnoid hemorrhage) Code(s): I60.9 - NONTRAUMATIC SUBARACHNOID HEMORRHAGE, UNSPECIFIED Status: Acute Plan: Hemodynamically stable. BP being controlled. Continue current management. Cerebral Aneurysm Rupture with acute ICH- with hydrocephalus Comment: s/p venticulostomy drain placement, and coiling procedure (2) Right lower lobe pneumonia Code(s): J18.1 - LOBAR PNEUMONIA, UNSPECIFIED ORGANISM Status: Acute Qualifiers: Pneumonia type: due to methicillin-resistant Staphylococcus aureus (MRSA) Qualified Code(s): J15.212 - Pneumonia due to Methicillin resistant Staphylococcus aureus Comment: Contibnue broad spectrum anibiotics for today. (3) Respiratory failure Code(s): J96.90 - RESPIRATORY FAILURE, UNSP, UNSP W HYPOXIA OR HYPERCAPNIA Status: Acute Comment: 2/2 SAH (4) CAD (coronary artery disease) Code(s): I25.10 - ATHSCL HEART DISEASE OF [place] CORONARY ARTERY W/O ANG PCTRS Status: Acute (5) Cerebral aneurysm rupture Code(s): I60.9 - NONTRAUMATIC SUBARACHNOID HEMORRHAGE, UNSPECIFIED Status: Acute (6) Hypertension Code(s): I10 - ESSENTIAL (PRIMARY) HYPERTENSION Status: Acute Qualifiers: Hypertension type: essential hypertension Qualified Code(s): I10 - Essential (primary) hypertension - Plan cont current plan of care, plan discussed w/ family, continue antibiotics * .
--- NOTE | 2017-10-08 16:25 | PRG ---
DATE OF SERVICE: 10/08/2017 SUBJECTIVE: Ms. Griffin has a leak today. Unfortunately, with Xanax this morning , she slept all morning and into the afternoon. We have discontinued all sedating drugs and we will try again in the morning. They want her to have another day of steroids for vocal cord edema. I suspect that is why she did not have a leak yesterday. OBJECTIVE: VITAL SIGNS: Blood pressure 150/67, heart rate is 94, respiratory rate is 18. LUNGS: Clear. HEART: Regular rhythm. ABDOMEN: Soft. LABORATORY DATA: White count 9.3, hemoglobin 10.8, platelets 258,000. Sodium 136, potassium 3.9, chloride 109, bicarbonate 16, BUN 19, creatinine 0.92. pH 7.44, pCO2 of 25, pO2 of 91 on pressure support of 13 and 5 of PEEP. IMPRESSION: 1. Respiratory failure associated with subarachnoid bleed. 2. Status post external ventricular drain. 3. Vomiting after drain placed leading to emergent intubation nasally. Hopefully, we can extubate her in the morning. I met with family and answered all their questions. Critical care time 30 min. TIFFANY
[2017-10-08] MEDS: Acetaminophen 325 MG TAB PO PRN (17:11)
[2017-10-08] MEDS: Sodium Chloride 0.9% 1,000 ML IV SCH (20:06)
[2017-10-09] MEDS: niMODipine 30 MG CAP PO SCH ×6 (00:32→20:26)
[2017-10-09] MEDS: Piperacillin/Tazobactam 3.375 GM in Sodium Chloride 0.9% 100 ML IVPB SCH ×4 (00:32→17:42)
[2017-10-09 01:34] LABS: Vancomycin, Trough 24.6 ug/mL
[2017-10-09] MEDS: Vancomycin HCl 1 GM in Premix Bag 1 BAG IVPB SCH ×2 (02:08→14:53)
[2017-10-09 04:57] LABS: #Lymphocytes 0.6 thou/uL (1.20-3.40); #Monocytes 0.5 thou/uL (0.11-0.59); #Neutrophils 9.2 thou/uL (1.40-6.50); %Basophils 0.1 % (0.0-1.0); %Eosinophils 0.2 % (0.0-10.0); %Lymphocytes 5.6 % (21.0-51.0); %Monocytes 5.2 % (0.0-10.0); %Neutrophils 88.9 % (42.0-75.0); Hemoglobin 10.6 g/dL (12.0-16.0); Mean Corpuscular HGB CONC 33.5 g/dL (32.0-36.0); Mean Corpuscular Hemoglobin 28.7 pg (27.0-31.0); Mean Corpuscular Volume 85.6 fl (81.0-99.0); Platelet Count 401 thou/uL (130-400); RBC Distribution Width 13.9 % (11.5-14.5); White Blood Cell (WBC) Count 10.3 thou/uL (4.8-10.8)
[2017-10-09 05:24] LABS: Anion Gap 13 mmol/L (10-20); BUN (Urea Nitrogen) 25 mg/dL (9.8-20.1); Calc. Creatinine Clearance 64 mL/min (70-130); Calcium 8.4 mg/dL (7.8-10.44); Carbon Dioxide 17 mmol/L (23-31); Chloride 106 mmol/L (98-107); Estimated GFR-MDRD 58; Glucose 208 mg/dL (83-110); Magnesium 2.1 mg/dL (1.6-2.6); Phosphorus 2.1 mg/dL (2.3-4.7); Potassium 3.3 mmol/L (3.5-5.1); Sodium 133 mmol/L (136-145)
[2017-10-09] MEDS ORDERED: Potassium Chloride 40 MEQ in Sodium Chloride 0.9% 250 ML 250 ML IVPB SCH (07:45)
--- NOTE | 2017-10-09 08:39 | RAD ---
PORTABLE CHEST: History: On ventilator. CCU follow up. Dyspnea. Comparison: 10-05-17 FINDINGS: ET tube and NG tube remain unchanged in position. Lungs appear clear of infiltrate. Air filled colon under the right hemidiaphragm. Heart size mildly prominent with aortic calcification again noted. IMPRESSION: No acute finding or significant change. POS: [facility]
[2017-10-09] MEDS: Metoclopramide HCl 10 MG TAB PO SCH ×3 (08:54→20:26)
[2017-10-09] MEDS: Famotidine 20 MG TAB PO SCH ×2 (08:55→20:26)
[2017-10-09] MEDS ORDERED: Potassium Phosphate 44 MMOL in Sodium Chloride 0.9% 500 ML IVPB SCH (10:15)
--- NOTE | 2017-10-09 12:21 | PDOC.PN ---
- Subjective Encounter Start Date: 10/09/17 Encounter Start Time: 12:26 Subjective: Clinically unchanged. -: No acute events overnight. - Objective Resuscitation Status: Resuscitation Status DNR:Do Not Resuscitate Vital Signs & Weight: Vital Signs (12 hours) Temp Pulse Pulse Pulse Resp BP BP 10/09/17 10:38 97 162/80 H 10/09/17 10:00 21 H 10/09/17 08:46 91 84 172/70 H 10/09/17 07:25 98.2 F 99 20 10/09/17 07:19 99 170/73 H 10/09/17 06:00 19 10/09/17 04:00 17 10/09/17 03:38 99 165/73 H 10/09/17 03:00 99.1 F 10/09/17 02:00 25 H BP Pulse Ox Pulse Ox Pulse Ox 10/09/17 10:38 10/09/17 10:00 10/09/17 08:46 163/69 H 96 97 10/09/17 07:25 98 10/09/17 07:19 10/09/17 06:00 10/09/17 04:00 10/09/17 03:38 10/09/17 03:00 10/09/17 02:00 Weight Admit Weight 146 lb Weight 176 lb 2.389 oz Most Recent Monitor Data Heart Rate from ECG 98 NIBP 172/83 NIBP BP-Mean 131 Respiration from ECG 20 SpO2 98 I&O: 10/08/17 10/09/17 10/10/17 06:59 06:59 06:59 Intake Total 4581 4653 370 Output Total 2317 1690 303 Balance 2264 2963 67 Result Diagrams: 10/09/17 04:20 10/09/17 03:30 Phys Exam - Physical Examination Constitutional: NAD HEENT: PERRLA, moist MMs, sclera anicteric Neck: no JVD, supple Respiratory: no wheezing, no rales, no rhonchi, clear to auscultation bilateral Cardiovascular: RRR, no significant murmur, no rub Gastrointestinal: soft, non-tender, no distention, positive bowel sounds Musculoskeletal: no edema, pulses present Intubated and sedated. Skin: no rash, normal turgor Dx/Plan (1) SAH (subarachnoid hemorrhage) Code(s): I60.9 - NONTRAUMATIC SUBARACHNOID HEMORRHAGE, UNSPECIFIED Status: Acute Comment: s/p venticulostomy drain placement, and coiling procedure (2) Right lower lobe pneumonia Code(s): J18.1 - LOBAR PNEUMONIA, UNSPECIFIED ORGANISM Status: Acute Qualifiers: Pneumonia type: due to methicillin-resistant Staphylococcus aureus (MRSA) Qualified Code(s): J15.212 - Pneumonia due to Methicillin resistant Staphylococcus aureus Comment: Contibnue broad spectrum anibiotics for today. (3) Respiratory failure Code(s): J96.90 - RESPIRATORY FAILURE, UNSP, UNSP W HYPOXIA OR HYPERCAPNIA Status: Acute Comment: 2/ SAH. Extubation likely today (4) CAD (coronary artery disease) Code(s): I25.10 - ATHSCL HEART DISEASE OF [place] CORONARY ARTERY W/O ANG PCTRS Status: Acute Qualifiers: Coronary Disease-Associated Artery/Lesion type: unspecified vessel or lesion type [place] vs. transplanted heart: [place] heart Associated angina: angina presence unspecified Qualified Code(s): I25.10 - Atherosclerotic heart disease of [place] coronary artery without angina pectoris (5) Cerebral aneurysm rupture Code(s): I60.9 - NONTRAUMATIC SUBARACHNOID HEMORRHAGE, UNSPECIFIED Status: Acute Plan: See problem #1 (6) Hypertension Code(s): I10 - ESSENTIAL (PRIMARY) HYPERTENSION Status: Acute Qualifiers: Hypertension type: essential hypertension Qualified Code(s): I10 - Essential (primary) hypertension Comment: Fair control. Monitor BP - Plan cont current plan of care, continue antibiotics, social media director * .
[2017-10-09] MEDS: Sodium Chloride 0.9% 1,000 ML IV SCH ×2 (14:53→18:41)
[2017-10-09] MEDS ORDERED: Metoclopramide HCl 10 MG TAB PO SCH (15:00)
--- NOTE | 2017-10-09 15:26 | CT ---
NONCONTRAST HEAD CT: History: Patient now awake after recent aneurysm clip last week. Evaluate for hydrocephalus. Comparison: 10-04-17 Technique: Noncontrast head CT was performed from skull base to skull vertex. FINDINGS: Re-demonstration of a right frontal [employer] shunt catheter with the distal tip in the anterior body of the right lateral ventricle. When compared to the previous examination, the ventricular system appears t o have slightly increased in size. There is still hemorrhage in the dependent portion of both lateral ventricles. Currently, the third ventricle measures 1.5 cm (previously measuring 1.0). Currently the occipital horn of the right lateral ventricle measures 2.4 cm (previously measuring 1.8 cm). There i s also evidence of subarachnoid hemorrhage. There is no midline shift. The basilar cisterns appear to be patent. Small amount of hemorrhage in the third ventricle is also noted. There are periventricular white matter hypodensities which may be due to chronic small vessel ischemi c change versus transependymal flow of CSF. Echogenic edema involving the right frontal lobe, along the course of the [employer] shunt catheter. There is a right paraclinoid aneurysm clip. There is associated beam attenuation artifact. Calvarium is intact. Left mastoid sinus, left ethmoid air cell, and sphenoid sinus disease is noted. IMPRESSION: 1. Slight interval increase in size of the ventricular system when compared to prior examination. 2. Re-demonstration of intraventricular hemorrhage. Re-demonstration of subarachnoid blood. 3. White matter hypodensities likely due to small vessel ischemic change. Transependymal flow of CSF cannot be excluded. POS: [facility]
--- NOTE | 2017-10-09 20:36 | PRG ---
DATE OF SERVICE: 10/09/2017 SUBJECTIVE: Ms. Ebony Griffin was examined this morning and during the lunch hour. She would arouse to a sternal rub this morning, but was less arousable, I thought, at lunchtime. OBJECTIVE: VITAL SIGNS: She is afebrile, respiratory rate is 20, blood pressure 150/86. LUNGS: Clear. CARDIOVASCULAR: Heart, regular rhythm. S1 and S2 are normal. ABDOMEN: Soft and nontender. EXTREMITIES: Without asymmetry. LABORATORY DATA: White count 10.3, hemoglobin 10.6, platelets 401. Sodium 133, potassium 3.3, chlor cathy 106, bicarbonate 17, BUN 25, creatinine 0.93, glucose 208. No blood gas was done today. Intake and output is positive 2963. IMPRESSION: 1. Respiratory failure associated with a ruptured aneurysm. 2. Subarachnoid bleed. 3. External ventricular drain in place for fever over the weekend, improved with the addition of van comycin. 4. Encephalopathy. Two days ago, she was wide awake. Yesterday, we blamed her somnolence on alpraz olam, but this has clearly been metabolized at this point. I discussed with Neurosurgery since they have recently apparently adjusted her ventricular drainage. They have suggested noncontrast head CT. This has been done, which shows an increase in the size of her ventricles. IMPRESSION: 1. Encephalopathy, not weanable. 2. Ventriculomegaly. I suspect her ventricular drainage will have to be increased. I met with family and answered all their questions. Critical care time was 30 minutes.
[2017-10-10] MEDS: Piperacillin/Tazobactam 3.375 GM in Sodium Chloride 0.9% 100 ML IVPB SCH ×4 (00:17→17:34)
[2017-10-10] MEDS: niMODipine 30 MG CAP PO SCH ×6 (00:17→21:53)
[2017-10-10] MEDS: Sodium Chloride 0.9% 1,000 ML IV SCH ×2 (00:17→14:55)
[2017-10-10 01:30] LABS: Vancomycin, Trough 22.3 ug/mL
[2017-10-10] MEDS: Vancomycin HCl 1 GM in Premix Bag 1 BAG IVPB SCH (02:18)
[2017-10-10 03:50] LABS: Anion Gap 18 mmol/L (10-20); BUN (Urea Nitrogen) 27 mg/dL (9.8-20.1); Band 6 % (5-11); Calc. Creatinine Clearance 67 mL/min (70-130); Carbon Dioxide 13 mmol/L (23-31); Chloride 108 mmol/L (98-107); Estimated GFR-MDRD 62; Glucose 175 mg/dL (83-110); Hemoglobin 10.2 g/dL (12.0-16.0); Lymphocytes 1 % (21-51); MDiff Complete? YES; Mean Corpuscular HGB CONC 33.1 g/dL (32.0-36.0); Mean Corpuscular Hemoglobin 28.9 pg (27.0-31.0); Mean Corpuscular Volume 87.5 fl (81.0-99.0); Mean Platelet Volume 8.1 fL (7.4-10.4); Monocytes 4 % (0-10); Neutrophil 89 % (42-75); PLT Morphology Comment Appears Increased; Phosphorus 3.7 mg/dL (2.3-4.7); Platelet Count 438 thou/uL (130-400); Potassium 4.5 mmol/L (3.5-5.1); RBC Distribution Width 14.2 % (11.5-14.5); Red Blood Cell (RBC) Count 3.54 mill/uL (4.20-5.40); Sodium 134 mmol/L (136-145); White Blood Cell (WBC) Count 22.3 thou/uL (4.8-10.8)
[2017-10-10] MEDS: Vancomycin HCl 750 MG in Sodium Chloride 0.9% 250 ML 250 ML IVPB SCH ×2 (05:40→18:14)
[2017-10-10] MEDS ORDERED: Furosemide 100 MG/10 ML VIAL SLOW IVP SCH (08:15)
[2017-10-10] MEDS ORDERED: Phenylephrine 1% Nasal Spray 15 ML BOT FS SCH (08:15)
--- NOTE | 2017-10-10 08:38 | RAD ---
PORTABLE CHEST: HISTORY: CCU followup. Dyspnea. COMPARISON: 10/09/17. FINDINGS: New streaky atelectasis and/or infiltrate in the left lung base is apparent through the cardiac silho uette. The lungs otherwise appear clear and unchanged. Cardiomegaly again noted with prominent aort ic calcification. The ET tube and NG tubes are unchanged. Gas-filled colon under the right hemidiap hragm again noted. IMPRESSION: New streaky atelectasis and/or infiltrate in the left lung base is noted today. POS: [facility]
[2017-10-10] MEDS: Metoclopramide HCl 10 MG TAB PO SCH ×4 (08:39→21:11)
[2017-10-10] MEDS: Famotidine 20 MG TAB PO SCH ×2 (08:39→21:11)
[2017-10-10] MEDS: Labetalol HCl 100 MG/20 ML VIAL SLOW IVP PRN ×5 (10:20→17:32)
[2017-10-10] MEDS: Scopolamine 1.5 mg/72 hour Patch TD SCH (10:41)
--- NOTE | 2017-10-10 10:51 | PRG ---
DATE OF SERVICE: 10/10/2017 SUBJECTIVE: Ebony Griffin is much more alert this morning. She met criteria for extubation. She pass ed a leak test. Her minute volume was only 7 liters a minute. OBJECTIVE: VITAL SIGNS: Her blood pressure 130/64, heart rate is 93, respiratory rate is 26. Intake and output is positive 2963. She was given 60 mg of IV Lasix this morning. IMAGING: Chest radiograph shows some atelectasis at her left base. IMPRESSION: 1. Respiratory failure associated with a subarachnoid bleed. 2. Obstructive hydrocephalus yesterday, improved neurological status. She subsequently has been ext ubated. She has an adequate cough, but it is weak. I have placed her on BiPAP for comfort and will intermittently remove this to let her take some sips. Her wants no PEG in the future. Hopefully, she will be stronger with some BiPAP throughout t he day and ongoing CSF drainage. I met with the and answered all of his questions. Critical care time 35 minutes.
--- NOTE | 2017-10-10 14:15 | PDOC.PN ---
- Subjective Encounter Start Date: 10/10/17 Encounter Start Time: 14:18 Subjective: No acute events overnight. -: Extubated today. More alert and able to follow commands - Objective Resuscitation Status: Resuscitation Status DNR:Do Not Resuscitate MAR Reviewed: Yes Vital Signs & Weight: Vital Signs (12 hours) Temp Pulse Resp BP Pulse Ox 10/10/17 11:41 87 10/10/17 11:00 98.8 F 10/10/17 10:20 87 23 H 100 10/10/17 10:17 87 24 H 98 10/10/17 08:45 98.9 F 97 29 H 98 10/10/17 08:41 104 H 34 H 96 10/10/17 08:20 103 H 33 H 97 10/10/17 08:05 94 10/10/17 07:00 98.9 F 10/10/17 06:00 23 H 10/10/17 04:00 20 10/10/17 03:00 99.0 F 10/10/17 02:15 81 166/76 H Weight Admit Weight 146 lb Weight 176 lb 12.972 oz Most Recent Monitor Data Heart Rate from ECG 82 NIBP 129/63 NIBP BP-Mean 82 Respiration from ECG 25 SpO2 94 I&O: 10/09/17 10/10/17 10/11/17 06:59 06:59 06:59 Intake Total 4653 5453 450 Output Total 1690 1860 1585 Balance 2964 5727 -7559 Result Diagrams: 10/10/17 01:07 10/10/17 01:07 Phys Exam - Physical Examination Constitutional: NAD HEENT: PERRLA, moist MMs, sclera anicteric Neck: no JVD, supple Respiratory: no wheezing, no rales, no rhonchi, clear to auscultation bilateral Cardiovascular: RRR, no significant murmur, no rub Gastrointestinal: soft, non-tender, no distention, positive bowel sounds Musculoskeletal: no edema, pulses present following commands Skin: no rash, normal turgor Dx/Plan (1) SAH (subarachnoid hemorrhage) Code(s): I60.9 - NONTRAUMATIC SUBARACHNOID HEMORRHAGE, UNSPECIFIED Status: Acute Comment: s/p venticulostomy drain placement, and coiling procedure (2) Right lower lobe pneumonia Code(s): J18.1 - LOBAR PNEUMONIA, UNSPECIFIED ORGANISM Status: Acute Qualifiers: Pneumonia type: due to methicillin-resistant Staphylococcus aureus (MRSA) Qualified Code(s): J15.212 - Pneumonia due to Methicillin resistant Staphylococcus aureus Comment: Continue broad spectrum anibiotics. (3) Respiratory failure Code(s): J96.90 - RESPIRATORY FAILURE, UNSP, UNSP W HYPOXIA OR HYPERCAPNIA Status: Acute Qualifiers: Chronicity: acute Respiratory failure complication: hypoxia Qualified Code(s): J96.01 - Acute respiratory failure with hypoxia Comment: 09/06 SAH. Extubated 10/10. Placed on BiPAP (4) CAD (coronary artery disease) Code(s): I25.10 - ATHSCL HEART DISEASE OF [place] CORONARY ARTERY W/O ANG PCTRS Status: Acute Qualifiers: Coronary Disease-Associated Artery/Lesion type: unspecified vessel or lesion type [place] vs. transplanted heart: [place] heart Associated angina: angina presence unspecified Qualified Code(s): I25.10 - Atherosclerotic heart disease of [place] coronary artery without angina pectoris (5) Cerebral aneurysm rupture Code(s): I60.9 - NONTRAUMATIC SUBARACHNOID HEMORRHAGE, UNSPECIFIED Status: Acute (6) Hypertension Code(s): I10 - ESSENTIAL (PRIMARY) HYPERTENSION Status: Acute Qualifiers: Hypertension type: essential hypertension Qualified Code(s): I10 - Essential (primary) hypertension Comment: Fair control. Monitor BP - Plan cont current plan of care, vicente catheter, continue antibiotics, PT/OT PT/OT * .
[2017-10-11] MEDS: niMODipine 30 MG CAP PO SCH ×6 (00:51→20:03)
[2017-10-11] MEDS: Piperacillin/Tazobactam 3.375 GM in Sodium Chloride 0.9% 100 ML IVPB SCH ×5 (00:51→23:52)
[2017-10-11 04:58] LABS: Anion Gap 11 mmol/L (10-20); BUN (Urea Nitrogen) 26 mg/dL (9.8-20.1); Calc. Creatinine Clearance 62 mL/min (70-130); Calcium 7.9 mg/dL (7.8-10.44); Carbon Dioxide 19 mmol/L (23-31); Chloride 109 mmol/L (98-107); Estimated GFR-MDRD 56; Glucose 129 mg/dL (83-110); Magnesium 1.9 mg/dL (1.6-2.6); Phosphorus 3.2 mg/dL (2.3-4.7); Potassium 3.4 mmol/L (3.5-5.1); Sodium 136 mmol/L (136-145)
[2017-10-11 05:00] LABS: #Lymphocytes 0.7 thou/uL (1.20-3.40); #Monocytes 1.3 thou/uL (0.11-0.59); #Neutrophils 11.5 thou/uL (1.40-6.50); %Eosinophils 0.2 % (0.0-10.0); %Lymphocytes 4.8 % (21.0-51.0); %Monocytes 9.5 % (0.0-10.0); %Neutrophils 85.5 % (42.0-75.0); Hemoglobin 9.2 g/dL (12.0-16.0); Mean Corpuscular Hemoglobin 28.2 pg (27.0-31.0); Mean Corpuscular Volume 85.4 fl (81.0-99.0); Mean Platelet Volume 7.2 fL (7.4-10.4); Platelet Count 407 thou/uL (130-400); Red Blood Cell (RBC) Count 3.27 mill/uL (4.20-5.40); White Blood Cell (WBC) Count 13.4 thou/uL (4.8-10.8)
[2017-10-11] MEDS: Vancomycin HCl 750 MG in Sodium Chloride 0.9% 250 ML 250 ML IVPB SCH ×2 (07:12→19:36)
[2017-10-11] MEDS ORDERED: Potassium Chloride 40 MEQ in Sodium Chloride 0.9% 250 ML 250 ML IVPB SCH (07:30)
[2017-10-11] MEDS: Metoclopramide HCl 10 MG TAB PO SCH ×4 (09:04→20:03)
[2017-10-11] MEDS: Famotidine 20 MG TAB PO SCH (09:05)
--- NOTE | 2017-10-11 09:30 | RAD ---
PORTABLE AP CHEST X-RAY: 10/11/2017 HISTORY: On ventilator. Follow-up evaluation. COMPARISON: 10/10/2017 FINDINGS: Endotracheal tube and nasogastric tube have been removed. The vertically oriented linear and patchy density at the medial left lung base is again seen and again may be related to atelectasis. There is persistent elevation of the right hemidiaphragm with gaseous distention of loops of bowel beneath th e right hemidiaphragm. Mild atelectasis is again seen at the right lung base. The cardiac silhouett e is magnified by projection but stable in size. The pulmonary vasculature is within normal limits. No other interval change. IMPRESSION: 1. Stable chest with linear and patchy density at the left lung base, probably related to atelectasi s, but an area of pneumonitis cannot be entirely excluded. 2. Elevation of right hemidiaphragm with gaseous distention of the colon beneath the right hemidiaph ragm. POS: [facility]
[2017-10-11 09:36] VITALS: BMI 32.4
[2017-10-11] MEDS: Famotidine/PF 20 mg/2ml Vial SLOW IVP SCH ×2 (09:56→20:00)
--- NOTE | 2017-10-11 13:31 | PDOC.PN ---
- Subjective Encounter Start Date: 10/11/17 Encounter Start Time: 13:34 Subjective: Extubated yesterday and now on room air -: Reported to be following commands yesterday not not doing so today - Objective Resuscitation Status: Resuscitation Status DNR:Do Not Resuscitate MAR Reviewed: Yes Vital Signs & Weight: Vital Signs (12 hours) Temp Pulse Resp Pulse Ox 10/11/17 11:03 103 H 22 H 97 10/11/17 10:35 88 24 H 10/11/17 08:00 99.8 F H 88 24 H 93 L 10/11/17 07:00 99.8 F H 10/11/17 06:02 97 10/11/17 06:01 94 27 H 10/11/17 04:00 99.7 F H Weight Admit Weight 146 lb Weight 182 lb 15.739 oz Most Recent Monitor Data Heart Rate from ECG 111 NIBP 154/88 NIBP BP-Mean 114 Respiration from ECG 24 SpO2 98 I&O: 10/10/17 10/11/17 10/12/17 06:59 06:59 06:59 Intake Total 5453 2977 250 Output Total 1860 3371 476 Balance 3593 -394 -226 Result Diagrams: 10/11/17 04:38 10/11/17 04:38 Phys Exam - Physical Examination Constitutional: NAD HEENT: PERRLA, moist MMs, sclera anicteric Ventricular drain in place. Neck: no JVD, full ROM Respiratory: no wheezing, no rales, no rhonchi, clear to auscultation bilateral Cardiovascular: RRR, no significant murmur, no rub Gastrointestinal: soft, non-tender, no distention, positive bowel sounds Musculoskeletal: no edema, pulses present Unable to cooperate with exam. Not following commands Skin: no rash, normal turgor Dx/Plan (1) SAH (subarachnoid hemorrhage) Code(s): I60.9 - NONTRAUMATIC SUBARACHNOID HEMORRHAGE, UNSPECIFIED Status: Acute Comment: s/p venticulostomy drain placement, and coiling procedure. Stable after extubation. (2) Right lower lobe pneumonia Code(s): J18.1 - LOBAR PNEUMONIA, UNSPECIFIED ORGANISM Status: Acute Qualifiers: Pneumonia type: due to methicillin-resistant Staphylococcus aureus (MRSA) Qualified Code(s): J15.212 - Pneumonia due to Methicillin resistant Staphylococcus aureus Comment: Continue broad spectrum anibiotics (started 10/02). (3) Respiratory failure Code(s): J96.90 - RESPIRATORY FAILURE, UNSP, UNSP W HYPOXIA OR HYPERCAPNIA Status: Resolved Qualifiers: Chronicity: acute Respiratory failure complication: hypoxia Qualified Code(s): J96.01 - Acute respiratory failure with hypoxia Comment: 09/06 SAH. Extubated 10/10. Placed on BiPAP initially but now transitioned to room air. (4) CAD (coronary artery disease) Code(s): I25.10 - ATHSCL HEART DISEASE OF [place] CORONARY ARTERY W/O ANG PCTRS Status: Acute Qualifiers: Coronary Disease-Associated Artery/Lesion type: unspecified vessel or lesion type [place] vs. transplanted heart: [place] heart Associated angina: angina presence unspecified Qualified Code(s): I25.10 - Atherosclerotic heart disease of [place] coronary artery without angina pectoris (5) Cerebral aneurysm rupture Code(s): I60.9 - NONTRAUMATIC SUBARACHNOID HEMORRHAGE, UNSPECIFIED Status: Acute (6) Hypertension Code(s): I10 - ESSENTIAL (PRIMARY) HYPERTENSION Status: Acute Qualifiers: Hypertension type: essential hypertension Qualified Code(s): I10 - Essential (primary) hypertension Comment: Fair control. Monitor BP. On Nicardipine drip. (7) Hypokalemia Code(s): E87.6 - HYPOKALEMIA Status: Acute Plan: Replete - Plan cont current plan of care * . Review of Systems - Medications/Allergies Allergies/Adverse Reactions: Allergies Allergy/AdvReac Type Severity Reaction Status Date / Time lorazepam [From Ativan] Allergy Verified 07/08/15 17:01 Sulfa (Sulfonamide Allergy Verified 07/08/15 17:01 Antibiotics) Medications: Current Medications Acetaminophen (Tylenol) 650 mg PO Q6H PRN PRN Reason: Headache/Fever or Pain Last Admin: 10/08/17 17:11 Dose: 650 mg Al Hydroxide/Mg Hydroxide (Maalox) 30 ml PO Q6H PRN PRN Reason: Indigestion Albuterol/Ipratropium (Duoneb) 3 ml NEB [id number] SHELLI Last Admin: 10/11/17 10:35 Dose: 3 ml Docusate Sodium (Colace) 100 mg PO BIDPRN PRN PRN Reason: Constipation Famotidine (Pepcid) 20 mg SLOW IVP 0900,2100 [facility] Last Admin: 10/11/17 09:56 Dose: 20 mg Nicardipine HCl 25 mg/ Sodium (Chloride) 260 mls @ 0 mls/hr IVPB INF SHELLI; Titrate PRN Reason: Protocol Last Admin: 10/11/17 12:24 Dose: 260 mls Diltiazem HCl 125 mg/ Sodium (Chloride) 125 mls @ 5 mls/hr IVPB INF SHELLI; 5 MG/ HR PRN Reason: Protocol Last Admin: 10/03/17 22:46 Dose: 125 mls Piperacillin Sod/Tazobactam (Sod 3.375 gm/ Sodium Chloride) 100 mls @ 200 mls/ hr IVPB Q6HR SHELLI Stop: 10/12/17 18:01 Last Admin: 10/11/17 12:24 Dose: 100 mls Sodium Chloride (Normal Saline 0.9%) 1,000 mls @ 0 mls/hr IV .Q0M SHELLI PRN Reason: KVO Last Admin: 10/10/17 14:55 Dose: Not Given Vancomycin HCl 750 mg/ Sodium (Chloride) 250 mls @ 250 mls/hr IVPB 0600,1800 [facility] Stop: 10/12/17 23:59 Last Admin: 10/11/17 07:12 Dose: 250 mls Ibuprofen (Motrin) 400 mg PO Q6H PRN PRN Reason: Fever > 101 Last Admin: 10/07/17 08:16 Dose: 400 mg Labetalol HCl (Normodyne) 10 mg SLOW IVP Q15MIN PRN PRN Reason: SBP GREATER THAN 160 Last Admin: 10/10/17 17:32 Dose: 10 mg Magnesium Hydroxide (Milk Of Magnesium) 30 ml PO BIDPRN PRN PRN Reason: Constipation Metoclopramide HCl (Reglan) 10 mg PO ACHS [facility] Last Admin: 10/11/17 12:18 Dose: Not Given Miscellaneous Medication (Pharmacy To Dose) 1 each IVPB ONE PRN PRN Reason: Pharmacy to dose Stop: 10/12/17 23:59 Nimodipine (Nimodipine) 60 mg PO Q4HR [facility] Last Admin: 10/11/17 12:18 Dose: Not Given Ondansetron HCl (Zofran) 4 mg IVP Q6H PRN PRN Reason: Nausea/Vomiting Last Admin: 10/08/17 20:07 Dose: 4 mg Phenylephrine HCl (Irvin-Synephrine 0.5% Nasal [place]) 1 ml EA NARE PRN PRN PRN Reason: DIRECTED Last Admin: 10/10/17 08:26 Dose: 1 spray Promethazine HCl (Phenergan) 25 mg IM Q4H PRN PRN Reason: Nausea/Vomiting Last Admin: 10/06/17 11:40 Dose: 12.5 mg Scopolamine (Transderm Scop) 1.5 mg TD Q3D SHELLI Last Admin: 10/10/17 10:41 Dose: 1.5 mg Sodium Chloride (Flush - Normal Saline) 10 ml IVF Q12HR SHELLI Last Admin: 10/11/17 09:13 Dose: 10 ml Sodium Chloride (Flush - Normal Saline) 10 ml IVF PRN PRN PRN Reason: Saline Flush
[2017-10-11 15:36] VITALS: BP 179/67
[2017-10-11 17:46] LABS: Vancomycin, Trough 18.5 ug/mL
[2017-10-11] MEDS ORDERED: Famotidine/PF 20 mg/2ml Vial SLOW IVP SCH (21:00)
--- NOTE | 2017-10-11 22:51 | PRG ---
DATE OF SERVICE: 10/11/2017 SUBJECTIVE: I met with the and answered all of his questions at the bedside today. OBJECTIVE: VITAL SIGNS: Temperature is 100.8, heart rate is 94, blood pressure 157/66. LUNGS: Clear. HEART: Regular rhythm. ABDOMEN: Soft. She is still having problems with her secretions. She was placed back on BiPAP this morning. LABORATORY DATA: White count 13.4, hemoglobin 9.2, platelets 407. Sodium 136, potassium 3.4, chloride 109, bicarbonate 19, BUN 26, creatinine 0.9. IMPRESSION: 1. Respiratory insufficiency secondary to muscle weakness. 2. Status post subarachnoid bleed with subsequent coiling. 3. Obstructive hydrocephalus. 4. Retained secretions secondary to weakness. She may not survive this. I have explained to the jair rodriguez that the weakness is the biggest issue at this point. We will continue with BiPAP and intermit tent supplements of Ensure and some ice chips. They are adamant that she never had a tracheostomy or any type of tube feedings including a [place]. We will respect their wishes. I am just not sure s he can rally to a point where she will be strong enough to control her airways and her secretions. CRITICAL CARE TIME: 30 minutes.
[2017-10-12] MEDS: niMODipine 30 MG CAP PO SCH ×6 (00:18→20:38)
[2017-10-12 04:32] LABS: #Eosinphils 0.1 thou/uL (0.0-0.7); #Lymphocytes 1.3 thou/uL (1.20-3.40); #Monocytes 1.8 thou/uL (0.11-0.59); %Basophils 0.2 % (0.0-1.0); %Eosinophils 0.5 % (0.0-10.0); %Lymphocytes 8.5 % (21.0-51.0); %Neutrophils 78.8 % (42.0-75.0); Hemoglobin 9.3 g/dL (12.0-16.0); Mean Corpuscular Hemoglobin 29.3 pg (27.0-31.0); Mean Corpuscular Volume 85.9 fl (81.0-99.0); Mean Platelet Volume 6.7 fL (7.4-10.4); Platelet Count 386 thou/uL (130-400); RBC Distribution Width 14.2 % (11.5-14.5); Red Blood Cell (RBC) Count 3.16 mill/uL (4.20-5.40); White Blood Cell (WBC) Count 15.2 thou/uL (4.8-10.8)
[2017-10-12 04:44] LABS: Anion Gap 10 mmol/L (10-20); BUN (Urea Nitrogen) 19 mg/dL (9.8-20.1); Calc. Creatinine Clearance 70 mL/min (70-130); Carbon Dioxide 21 mmol/L (23-31); Chloride 110 mmol/L (98-107); Estimated GFR-MDRD 62; Glucose 111 mg/dL (83-110); Magnesium 1.8 mg/dL (1.6-2.6); Phosphorus 2.6 mg/dL (2.3-4.7); Potassium 3.4 mmol/L (3.5-5.1); Sodium 138 mmol/L (136-145)
[2017-10-12] MEDS: Vancomycin HCl 750 MG in Sodium Chloride 0.9% 250 ML 250 ML IVPB SCH ×2 (05:00→18:05)
[2017-10-12] MEDS: Piperacillin/Tazobactam 3.375 GM in Sodium Chloride 0.9% 100 ML IVPB SCH ×3 (05:00→18:05)
--- NOTE | 2017-10-12 07:13 | PRG ---
DATE OF SERVICE: 10/12/2017 Ms. Griffin is a 77-year-old female, who presented 2 weeks ago with a High grade subarachnoid hemorrhage on Burr and Henry scale. Since that time, she has had an EVD and a coiled right PCOM aneurysm by Dr. Kodak Cummings. The patient is able to look at me this morning on exam, when I call her name. She is able to follow simple commands like moving her toes, but she is unable to lift her feet or her arms for me on command. Daughter at bedside said that she was moving her upper and lower extremities bilaterally all night. There have been no acute events overnight. This morning, her sodium is 138, white blood cell count is 15.2, hemoglobin is 9.3. Chest x-ray has been ordered for this morning. Patient is currently on BiPAP and has intermittent supplements of Ensure and some ice chips. She will need a swallow study at some point. I will continue to watch her while she is in the ICU. We will leave the EVD open at 5 cm of water for now. If there are any other questions, please feel free to contact Neurosurgery. TIFFANY
[2017-10-12] MEDS ORDERED: cloNIDine 0.1 MG TAB PO PRN (07:43)
[2017-10-12] MEDS ORDERED: Potassium Chloride 40 MEQ in Premix Bag 1 BAG IVPB SCH (07:45)
[2017-10-12] MEDS ORDERED: Potassium Chloride 20 MEQ TAB PO SCH (08:00)
[2017-10-12] MEDS: Metoclopramide HCl 10 MG TAB PO SCH ×5 (08:47→20:38)
[2017-10-12] MEDS: Carvedilol 25 MG TAB PO SCH ×2 (08:48→20:38)
[2017-10-12] MEDS: Amlodipine 5 MG TAB PO SCH (08:48)
[2017-10-12] MEDS ORDERED: Non-Formulary Item 1 EACH (Levothyroxine Sodium [Tirosint] 50 MCG) PO SCH (09:00)
[2017-10-12] MEDS ORDERED: Carvedilol 3.125 MG TAB PO SCH (09:00)
--- NOTE | 2017-10-12 09:46 | RAD ---
PORTABLE CHEST: Date: 10/12/17 COMPARISON: 10/11/17. HISTORY: Respiratory distress. FINDINGS: Heart size is enlarged. There is elevation of the right hemidiaphragm. Lungs show some chronic change . Overall stable appearance as compared to the prior study. IMPRESSION: Stable exam. POS: [facility]
--- NOTE | 2017-10-12 10:07 | PRG ---
DATE OF SERVICE: 10/12/2017 SUBJECTIVE: Ms. Griffin has not improved at all. She will awaken intermittently and interact with her family, but she is somnolent majority of the time. BiPAP was removed. She becomes even more somnol ence with actually functioning is little bit of an irritating stimulant. OBJECTIVE: VITAL SIGNS: Her blood pressure goes up when she is stimulated, she is still on Cardene. Blood pres sure now is 176/79, heart rate is 110, respiratory rate 33. LUNGS: Clear anteriorly. CARDIOVASCULAR: Regular rhythm. S1 and S2 are normal. ABDOMEN: Soft and nontender. EXTREMITIES: Without asymmetry or edema. LABORATORY DATA: White count 15.3, hemoglobin 9.3, and platelets 386. Sodium 138, potassium 3.4, ch loride 110, bicarbonate 21, BUN 19, and creatinine 0.88. IMPRESSION AND PLAN: 1. Acute respiratory failure secondary to subarachnoid bleed. 2. Subarachnoid bleed, status post coiling. 3. Status post placement of an external ventricular drain. She drained 243 mL of cerebrospinal flui d last 24 hours. Her family said that a ventricular shunt procedure is not an option for her. I have explained to the family that if we do not see any neurological improvement, in my opinion we s hould consider comfort care tomorrow. They are willing to consider this and they planned to have a f amily meeting to discuss this. Unfortunately, it does not appear she is improving. Just her muscle weakness alone and her deconditioning are enough to almost guarantee that she can survive this. I me t with the family at the bedside ( and the daughter) for approximately 15 minutes after I eval uated her.
[2017-10-12] MEDS: Famotidine/PF 20 mg/2ml Vial SLOW IVP SCH ×2 (10:15→20:39)
--- NOTE | 2017-10-12 10:51 | PRG ---
DATE OF SERVICE: 10/12/2017 I saw Ms. Griffin in the ICU this morning. She remains extubated. She is on CPAP. An EVD is still in place. She is on day 12 of her hospitalization. She has subarachnoid hemorrhage, which is high grade and a right become aneurysm coiling. Overnight, her heart rate has been in the 100s, blood pressures are elevated in the 170s, and she rem ains on a Cardene drip. ICP is controlled at 5 with an external ventricular drain. As I speak to Ms. Griffin, she attempts to open her eyes, but they do not make it all the way open. Sh e weakly squeezes both hands, and after some vigorous encouragement, will wiggle her toes. She has v joselito little energy and only temporary alertness. Sodium is 136. Recent CT scan showed the EVD is in place. I spent 10-15 minutes talking with Mr. Griffin about his . He is still quite adamant that he does not want her reintubated and does not want to place a feeding tube. I do think Ms. Griffin will be awake enough to start eating soon. If over the weekend she makes no sig nificant progress, I believe the family will be leaning towards comfort care measures in the early pa rt of next week. We will continue to follow her care.
--- NOTE | 2017-10-12 12:30 | PDOC.PN ---
- Subjective Encounter Start Date: 10/12/17 Encounter Start Time: 12:31 Subjective: PAtient not doing well. Has been hypoxic and requiring BiPAP -: No acute events overnight. No clinical improvement. - Objective Resuscitation Status: Resuscitation Status DNR:Do Not Resuscitate MAR Reviewed: Yes Vital Signs & Weight: Vital Signs (12 hours) Temp Pulse Resp Pulse Ox 10/12/17 12:00 99.3 F 10/12/17 11:00 84 31 H 99 10/12/17 10:59 92 25 H 99 10/12/17 10:50 100.3 F H 10/12/17 08:00 100.3 F H 83 25 H 95 10/12/17 07:05 100.3 F H 10/12/17 06:51 100 36 H 97 10/12/17 06:48 100 36 H 97 10/12/17 04:00 98.9 F 10/12/17 02:40 93 98 Weight Admit Weight 146 lb Weight 187 lb 13.341 oz Most Recent Monitor Data Heart Rate from ECG 96 NIBP 186/76 NIBP BP-Mean 123 Respiration from ECG 23 SpO2 99 I&O: 10/11/17 10/12/17 10/13/17 06:59 06:59 07:59 Intake Total 2977 2749 Output Total 3372 2987 975 [facility] [phone] Result Diagrams: 10/12/17 04:23 10/12/17 04:23 Phys Exam - Physical Examination Constitutional: NAD HEENT: PERRLA, moist MMs, sclera anicteric Neck: supple Respiratory: no wheezing, no rales, no rhonchi, clear to auscultation bilateral On Bipap Cardiovascular: no significant murmur, no rub Gastrointestinal: soft, non-tender, no distention, positive bowel sounds Musculoskeletal: no edema, pulses present Unable to cooperate with exam. Diffucult to arouse. Skin: no rash, normal turgor Dx/Plan (1) SAH (subarachnoid hemorrhage) Code(s): I60.9 - NONTRAUMATIC SUBARACHNOID HEMORRHAGE, UNSPECIFIED Status: Acute Comment: s/p venticulostomy drain placement, and coiling procedure. Stable after extubation. (2) Right lower lobe pneumonia Code(s): J18.1 - LOBAR PNEUMONIA, UNSPECIFIED ORGANISM Status: Acute Qualifiers: Pneumonia type: due to methicillin-resistant Staphylococcus aureus (MRSA) Qualified Code(s): J15.212 - Pneumonia due to Methicillin resistant Staphylococcus aureus Comment: Continue broad spectrum anibiotics (started 10/02). (3) Respiratory failure Code(s): J96.90 - RESPIRATORY FAILURE, UNSP, UNSP W HYPOXIA OR HYPERCAPNIA Status: Resolved Qualifiers: Chronicity: acute Respiratory failure complication: hypoxia Qualified Code(s): J96.01 - Acute respiratory failure with hypoxia Comment: 09/06 SAH. Extubated 10/10. Placed on BiPAP (4) CAD (coronary artery disease) Code(s): I25.10 - ATHSCL HEART DISEASE OF [place] CORONARY ARTERY W/O ANG PCTRS Status: Acute Qualifiers: Coronary Disease-Associated Artery/Lesion type: unspecified vessel or lesion type [place] vs. transplanted heart: [place] heart Associated angina: angina presence unspecified Qualified Code(s): I25.10 - Atherosclerotic heart disease of [place] coronary artery without angina pectoris (5) Cerebral aneurysm rupture Code(s): I60.9 - NONTRAUMATIC SUBARACHNOID HEMORRHAGE, UNSPECIFIED Status: Acute (6) Hypertension Code(s): I10 - ESSENTIAL (PRIMARY) HYPERTENSION Status: Acute Qualifiers: Hypertension type: essential hypertension Qualified Code(s): I10 - Essential (primary) hypertension Comment: Fair control. Monitor BP. On Nicardipine drip. (7) Hypokalemia Code(s): E87.6 - HYPOKALEMIA Status: Acute Plan: replete as necessary. - Plan cont current plan of care, plan discussed w/ family, vicente catheter, continue antibiotics, DVT proph w/SCDs Patient's clinical status to be monitored today -: Possible comfort care status if no clinical improvement by tomorrow -: Family aware and updated. * . Review of Systems - Medications/Allergies Allergies/Adverse Reactions: Allergies Allergy/AdvReac Type Severity Reaction Status Date / Time lorazepam [From Ativan] Allergy Verified 07/08/15 17:01 Sulfa (Sulfonamide Allergy Verified 07/08/15 17:01 Antibiotics) Medications: Current Medications Acetaminophen (Tylenol) 650 mg PO Q6H PRN PRN Reason: Headache/Fever or Pain Last Admin: 10/08/17 17:11 Dose: 650 mg Al Hydroxide/Mg Hydroxide (Maalox) 30 ml PO Q6H PRN PRN Reason: Indigestion Albuterol/Ipratropium (Duoneb) 3 ml NEB [id number] [facility] Last Admin: 10/12/17 10:59 Dose: 3 ml Amlodipine Besylate (Norvasc) 2.5 mg PO DAILY [facility] Last Admin: 10/12/17 08:48 Dose: Not Given Atorvastatin Calcium (Lipitor) 10 mg PO HS SHELLI Carvedilol (Coreg) 25 mg PO BID [facility] Last Admin: 10/12/17 08:48 Dose: Not Given Clonidine (Catapres) 0.1 mg PO Q6H PRN PRN Reason: Hypertension Docusate Sodium (Colace) 100 mg PO BIDPRN PRN PRN Reason: Constipation Famotidine (Pepcid) 20 mg SLOW IVP 0900,2100 [facility] Last Admin: 10/12/17 10:15 Dose: 20 mg Nicardipine HCl 25 mg/ Sodium (Chloride) 260 mls @ 0 mls/hr IVPB INF SHELLI; Titrate PRN Reason: Protocol Last Admin: 10/12/17 05:54 Dose: 260 mls Diltiazem HCl 125 mg/ Sodium (Chloride) 125 mls @ 5 mls/hr IVPB INF SHELLI; 5 MG/ HR PRN Reason: Protocol Last Admin: 10/03/17 22:46 Dose: 125 mls Piperacillin Sod/Tazobactam (Sod 3.375 gm/ Sodium Chloride) 100 mls @ 200 mls/ hr IVPB Q6HR [facility] Stop: 10/12/17 18:01 Last Admin: 10/12/17 05:00 Dose: 100 mls Sodium Chloride (Normal Saline 0.9%) 1,000 mls @ 0 mls/hr IV .Q0M SHELLI PRN Reason: KVO Last Admin: 10/10/17 14:55 Dose: Not Given Vancomycin HCl 750 mg/ Sodium (Chloride) 250 mls @ 250 mls/hr IVPB 0600,1800 [facility] Stop: 10/12/17 23:59 Last Admin: 10/12/17 05:00 Dose: 250 mls Ibuprofen (Motrin) 400 mg PO Q6H PRN PRN Reason: Fever > 101 Last Admin: 10/07/17 08:16 Dose: 400 mg Labetalol HCl (Normodyne) 10 mg SLOW IVP Q15MIN PRN PRN Reason: SBP GREATER THAN 160 Last Admin: 10/10/17 17:32 Dose: 10 mg Levothyroxine Sodium (Synthroid) 50 mcg PO 0600 SHELL[facility] Magnesium Hydroxide (Milk Of Magnesium) 30 ml PO BIDPRN PRN PRN Reason: Constipation Metoclopramide HCl (Reglan) 10 mg PO ACHS [facility] Last Admin: 10/12/17 10:51 Dose: Not Given Miscellaneous Medication (Pharmacy To Dose) 1 each IVPB ONE PRN PRN Reason: Pharmacy to dose Stop: 10/12/17 23:59 Nimodipine (Nimodipine) 60 mg PO Q4HR [facility] Last Admin: 10/12/17 12:19 Dose: Not Given Ondansetron HCl (Zofran) 4 mg IVP Q6H PRN PRN Reason: Nausea/Vomiting Last Admin: 10/08/17 20:07 Dose: 4 mg Phenylephrine HCl (Irvin-Synephrine 0.5% Nasal Leivasy) 1 ml EA NARE PRN PRN PRN Reason: DIRECTED Last Admin: 10/10/17 08:26 Dose: 1 spray Potassium Chloride (K-Dur) 40 meq PO BID-[facility] Stop: 10/13/17 08:01 Last Admin: 10/12/17 08:47 Dose: Not Given Promethazine HCl (Phenergan) 25 mg IM Q4H PRN PRN Reason: Nausea/Vomiting Last Admin: 10/06/17 11:40 Dose: 12.5 mg Scopolamine (Transderm Scop) 1.5 mg TD Q3D [facility] Last Admin: 10/10/17 10:41 Dose: 1.5 mg Sodium Chloride (Flush - Normal Saline) 10 ml IVF Q12HR [facility] Last Admin: 10/12/17 10:15 Dose: Not Given Sodium Chloride (Flush - Normal Saline) 10 ml IVF PRN PRN PRN Reason: Saline Flush
[2017-10-12] MEDS ORDERED: Potassium Chloride 40 MEQ in Sodium Chloride 0.9% 250 ML 250 ML IVPB SCH (15:45)
[2017-10-12] MEDS ORDERED: Atorvastatin Calcium 10 MG TAB PO SCH (21:00)
[2017-10-12] MEDS ORDERED: Acetaminophen 650 MG in Premix Bag 1 BAG IVPB PRN (21:03)
[2017-10-13] MEDS: niMODipine 30 MG CAP PO SCH ×3 (03:12→08:30)
[2017-10-13 05:15] LABS: #Eosinphils 0.3 thou/uL (0.0-0.7); #Lymphocytes 1.3 thou/uL (1.20-3.40); #Monocytes 1.4 thou/uL (0.11-0.59); #Neutrophils 11.5 thou/uL (1.40-6.50); %Basophils 0.2 % (0.0-1.0); %Eosinophils 1.9 % (0.0-10.0); %Lymphocytes 8.8 % (21.0-51.0); %Monocytes 9.9 % (0.0-10.0); %Neutrophils 79.2 % (42.0-75.0); Hemoglobin 10.5 g/dL (12.0-16.0); Mean Corpuscular HGB CONC 32.7 g/dL (32.0-36.0); Mean Corpuscular Hemoglobin 28.3 pg (27.0-31.0); Mean Corpuscular Volume 86.4 fl (81.0-99.0); Mean Platelet Volume 6.5 fL (7.4-10.4); Platelet Count 398 thou/uL (130-400); Red Blood Cell (RBC) Count 3.72 mill/uL (4.20-5.40); White Blood Cell (WBC) Count 14.6 thou/uL (4.8-10.8)
[2017-10-13 05:26] LABS: Anion Gap 13 mmol/L (10-20); BUN (Urea Nitrogen) 15 mg/dL (9.8-20.1); Calc. Creatinine Clearance 76 mL/min (70-130); Calcium 8.4 mg/dL (7.8-10.44); Carbon Dioxide 20 mmol/L (23-31); Chloride 109 mmol/L (98-107); Estimated GFR-MDRD 67; Glucose 113 mg/dL (83-110); Magnesium 1.9 mg/dL (1.6-2.6); Phosphorus 2.7 mg/dL (2.3-4.7); Potassium 3.5 mmol/L (3.5-5.1); Sodium 138 mmol/L (136-145)
[2017-10-13] MEDS ORDERED: Levothyroxine Sodium 50 MCG TAB PO SCH (06:00)
[2017-10-13] MEDS: Metoclopramide HCl 10 MG TAB PO SCH ×2 (07:57→11:34)
[2017-10-13] MEDS: Amlodipine 5 MG TAB PO SCH (08:30)
[2017-10-13] MEDS: Carvedilol 25 MG TAB PO SCH (08:30)
[2017-10-13] MEDS: Famotidine/PF 20 mg/2ml Vial SLOW IVP SCH (08:35)
--- NOTE | 2017-10-13 08:51 | RAD ---
PORTABLE CHEST: Date: 10/13/17 PROVIDED CLINICAL HISTORY: Respiratory insufficiency. FINDINGS: Comparison with 10/12/17. Significant interval change with respect to the prior examination is not apparent. Patchy parenchymal opacity involving the left mid and lower lung zones is again seen. IMPRESSION: As above. POS: [facility]
--- NOTE | 2017-10-13 09:01 | PRG ---
DATE OF SERVICE: 10/13/2017 I saw Ms. Griffin in the ICU this morning. Her was at the bedside and we spoke about her care. Ms. Griffin's EVD is still working. It is in place and draining nicely. Ms. Griffin had a T-max of 10 0.3 degrees Fahrenheit yesterday. When I walked into the room this morning, she has her eyes open an d she is looking into her 's eyes. Occasionally, she will follow some commands on the right s cathy faster than the left. She does wiggle her toes. Ms. Griffin failed a swallow test yesterday. She remains on BiPAP, noninvasive ventilation. Unfortunately, there is no safe way to get calories in Ms. Griffin currently. She has expressed her wi shes to her not to be intubated and not to have feeding tubes placed. I think without calori e support the outcome would not be a good one. We will let Mr. Griffin and Ms. Griffin visit with each o ther today and we can make some more definitive plans on either comfort measures or temporary hospice placement starting tomorrow morning.
[2017-10-13] MEDS: Scopolamine 1.5 mg/72 hour Patch TD SCH (09:54)
--- NOTE | 2017-10-13 12:11 | PDOC.PN ---
- Subjective Encounter Start Date: 10/13/17 Encounter Start Time: 08:40 on bipap. follows simple commands intermittently - Objective Resuscitation Status: Resuscitation Status DNR:Do Not Resuscitate Vital Signs & Weight: Vital Signs (12 hours) Temp Pulse Resp Pulse Ox 10/13/17 12:06 104 H 29 H 97 10/13/17 12:05 108 H 34 H 96 10/13/17 08:30 102 H 10/13/17 08:14 102 H 32 H 100 10/13/17 08:11 102 H 32 H 100 10/13/17 07:25 98.8 F 86 31 H 98 10/13/17 04:00 98.8 F 10/13/17 03:16 99 27 H 98 10/13/17 03:15 92 27 H 98 Weight Admit Weight 146 lb Weight 176 lb 12.972 oz Most Recent Monitor Data Heart Rate from ECG 85 NIBP 145/70 NIBP BP-Mean 94 Respiration from ECG 23 SpO2 97 I&O: 10/12/17 10/13/17 10/14/17 05:59 06:59 06:59 Intake Total 0 Output Total 685 Balance -685 Result Diagrams: 10/13/17 05:04 10/13/17 05:04 Phys Exam - Physical Examination Constitutional: NAD HEENT: PERRLA Neck: no JVD, supple Respiratory: no wheezing bipap on Cardiovascular: no rub tachy Gastrointestinal: soft, non-tender Musculoskeletal: pulses present Dx/Plan (1) CAD (coronary artery disease) Code(s): I25.10 - ATHSCL HEART DISEASE OF [place] CORONARY ARTERY W/O ANG PCTRS Status: Acute Qualifiers: Coronary Disease-Associated Artery/Lesion type: unspecified vessel or lesion type [place] vs. transplanted heart: [place] heart Associated angina: angina presence unspecified Qualified Code(s): I25.10 - Atherosclerotic heart disease of [place] coronary artery without angina pectoris (2) Hypokalemia Code(s): E87.6 - HYPOKALEMIA Status: Acute (3) ICH (intracerebral hemorrhage) Code(s): I61.9 - NONTRAUMATIC INTRACEREBRAL HEMORRHAGE, UNSPECIFIED Status: Acute (4) Right lower lobe pneumonia Code(s): J18.1 - LOBAR PNEUMONIA, UNSPECIFIED ORGANISM Status: Acute Qualifiers: Pneumonia type: due to methicillin-resistant Staphylococcus aureus (MRSA) Qualified Code(s): J15.212 - Pneumonia due to Methicillin resistant Staphylococcus aureus Comment: Continue broad spectrum anibiotics (started 10/02). (5) SAH (subarachnoid hemorrhage) Code(s): I60.9 - NONTRAUMATIC SUBARACHNOID HEMORRHAGE, UNSPECIFIED Status: Acute Comment: s/p venticulostomy drain placement, and coiling procedure. Stable after extubation. (6) Respiratory failure Code(s): J96.90 - RESPIRATORY FAILURE, UNSP, UNSP W HYPOXIA OR HYPERCAPNIA Status: Resolved Qualifiers: Chronicity: acute Respiratory failure complication: hypoxia Qualified Code(s): J96.01 - Acute respiratory failure with hypoxia Comment: 09/06 SAH. Extubated 10/10. Placed on BiPAP - Plan cont current plan of care, plan discussed w/ family, continue antibiotics, social insurance analyst, respiratory therapy * . EVD still in place on Bipap. removed feeding tube family to discuss about comfort/hospiace continue IV Abx supportive care mgmt
[2017-10-13] MEDS: Morphine 10 MG/ML VIAL SLOW IVP SCH ×7 (15:55→23:24)
--- NOTE | 2017-10-13 17:24 | PRG ---
DATE OF SERVICE: 10/13/2017 OBJECTIVE: VITAL SIGNS: Ms. Griffin's heart rate 108 this morning, respiratory rate in the 30s, on BiPAP. She ap peared fatigued. LUNGS: Remarkable for coarse equal breath sounds. She still has a lot of upper airway noise. HEART: Regular rhythm. S1 and S2 normal. ABDOMEN: Soft. EXTREMITIES: Warm. Intake and outputs negative 978. LABORATORY DATA: White count 14.6, hemoglobin 10.5, platelets 398. Sodium 138, potassium 3.5, chlor cathy 109, bicarbonate 20, BUN 15, creatinine 0.83. Chest radiograph is unchanged. She is hazy at the left base. IMPRESSION: Respiratory failure secondary to muscle weakness. I had a long meeting with the entire family today in the conference room for about 20 minutes. They want her kept comfortable and want to withdraw support. They all informed me that we have already go ne farther than she would have wanted to go from an invasive care or aggressive care standpoint. Iliana n is to remove BiPAP and just give her morphine for comfort. Family was allowed to stay in the room with her.
[2017-10-13] MEDS ORDERED: Vancomycin HCl 1 GM in Premix Bag 1 BAG IVPB SCH (21:00)
[2017-10-14] MEDS: Morphine 10 MG/ML VIAL SLOW IVP SCH ×5 (00:36→11:51)
--- NOTE | 2017-10-14 07:14 | PRG ---
DATE OF SERVICE: 10/14/2017 I am seeing Ms. Griffin in the ICU this morning. Her family expressed interest in comfort care yesterd ay and there has been transitioned to weaning any intensive medical interventions to those that only provided pain relief and comfort. Ms. Griffin's niece is in the room and spoke with her about these. Ms. Griffin herself had a T-max of 100.3 yesterday. Her neurological examination is unchanging. Her w sabina blood cell count is 14.6. Her sodium is 138 and her EVD is in place. My plan today is to remove the EVD, which we will do this morning. We will place a small staple. Reynaldo estevez will be transferred out of the ICU to inpatient hospice on the first floor with comfort care measur es only. Our Neurosurgery team will continue to follow her in the hospital.
--- NOTE | 2017-10-14 11:52 | PDOC.PN ---
- Subjective Encounter Start Date: 10/14/17 Encounter Start Time: 09:30 family has agreed on comfort care - Objective Resuscitation Status: Resuscitation Status DNR:Do Not Resuscitate Vital Signs & Weight: Vital Signs (12 hours) Temp Pulse Resp 10/14/17 07:01 98.7 F 92 9 L Weight Admit Weight 146 lb Weight 176 lb 12.972 oz Most Recent Monitor Data Heart Rate from ECG 92 NIBP 175/81 NIBP BP-Mean 124 Respiration from ECG 10 SpO2 99 I&O: 10/13/17 10/14/17 10/15/17 06:59 06:59 06:59 Intake Total 281 Output Total 1730 Balance -1449 Result Diagrams: 10/13/17 05:04 10/13/17 05:04 Phys Exam - Physical Examination Constitutional: NAD HEENT: PERRLA Neck: no nodes, no JVD, supple Respiratory: no wheezing, clear to auscultation bilateral Cardiovascular: RRR, no significant murmur Gastrointestinal: soft Musculoskeletal: pulses present Dx/Plan (1) CAD (coronary artery disease) Code(s): I25.10 - ATHSCL HEART DISEASE OF [place] CORONARY ARTERY W/O ANG PCTRS Status: Acute Qualifiers: Coronary Disease-Associated Artery/Lesion type: unspecified vessel or lesion type [place] vs. transplanted heart: [place] heart Associated angina: angina presence unspecified Qualified Code(s): I25.10 - Atherosclerotic heart disease of [place] coronary artery without angina pectoris (2) Hypokalemia Code(s): E87.6 - HYPOKALEMIA Status: Acute (3) ICH (intracerebral hemorrhage) Code(s): I61.9 - NONTRAUMATIC INTRACEREBRAL HEMORRHAGE, UNSPECIFIED Status: Acute (4) Right lower lobe pneumonia Code(s): J18.1 - LOBAR PNEUMONIA, UNSPECIFIED ORGANISM Status: Acute Qualifiers: Pneumonia type: due to methicillin-resistant Staphylococcus aureus (MRSA) Qualified Code(s): J15.212 - Pneumonia due to Methicillin resistant Staphylococcus aureus Comment: Continue broad spectrum anibiotics (started 10/02). (5) SAH (subarachnoid hemorrhage) Code(s): I60.9 - NONTRAUMATIC SUBARACHNOID HEMORRHAGE, UNSPECIFIED Status: Acute Comment: s/p venticulostomy drain placement, and coiling procedure. Stable after extubation. (6) Respiratory failure Code(s): J96.90 - RESPIRATORY FAILURE, UNSP, UNSP W HYPOXIA OR HYPERCAPNIA Status: Resolved Qualifiers: Chronicity: acute Respiratory failure complication: hypoxia Qualified Code(s): J96.01 - Acute respiratory failure with hypoxia Comment: 09/06 SAH. Extubated 10/10. Placed on BiPAP - Plan * . EVD to be removed today inpatient hospice consulted will be comfort care
[2017-10-14 12:17] VITALS: TEMP 99.1
--- NOTE | 2017-10-14 12:27 | PRG ---
DATE OF SERVICE: 10/14/2017 Ms. Griffin this morning was breathing 4 times a minute when I saw her around 7:00. I checked on her about 10 o'clock and she was breathing 6-8 times a minute. PHYSICAL EXAMINATION: VITAL SIGNS: She is afebrile. GENERAL: She appears comfortable. She is unresponsive with snoring respirations. The remainder of her exam is unchanged as expected. IMPRESSION: Status post subarachnoid bleed. PLAN: Comfort care.
--- NOTE | 2017-10-15 11:45 | DIS ---
HISTORY OF PRESENT ILLNESS AND HOSPITAL COURSE: The patient is a 77-year-old female who was admitted on 10/01/2017 for acute subarachnoid hemorrhage. This was confirmed by CTA and angiography. During admission course the patient subsequently became increasingly drowsy, was found to have enlarged ventricular system likely related to obstructive hydrocephalus, and therefore required EVD placement and intubation for airway protection. The patient underwent coiling several days later Following coiling we monitored for several days. Pts level of alertness waxed and waned and family made decision to extubate because this would have been the patients wishes. She never improved neurologically and they elected for hospice care. The patient was discharged to hospice care on 10/14/2017. TIFFANY
== END 2017-10-14 14:24 | disposition hospice, inpatient (51) | DRG 20 ==
LOC: ERS 09:24 → CCU 11:05
PROVIDERS: ADMIT Neurological Surgery; ATTEND Neurological Surgery
PROC: 009600Z Drainage of Cerebral Ventricle with Drainage Device, Open Approach (ICD-10-PCS; 2017-10-02)
PROC: 5A1955Z Respiratory Ventilation, Greater than 96 Consecutive Hours (ICD-10-PCS; 2017-10-02)
PROC: 0BH18EZ Insertion of Endotracheal Airway into Trachea, Via Natural or Artificial Opening Endoscopic (ICD-10-PCS; 2017-10-02)
PROC: 03LK3DZ Occlusion of Right Internal Carotid Artery with Intraluminal Device, Percutaneous Approach (ICD-10-PCS; principal; 2017-10-04)
DX: I60.31 Nontraumatic subarachnoid hemorrhage from right posterior communicating artery (principal); J96.01 Acute respiratory failure with hypoxia; R65.20 Severe sepsis without septic shock; J15.212 Pneumonia due to Methicillin resistant Staphylococcus aureus; G93.40 Encephalopathy, unspecified; G91.1 Obstructive hydrocephalus; A41.9 Sepsis, unspecified organism; N17.9 Acute kidney failure, unspecified; I48.91 Unspecified atrial fibrillation; E87.2 Acidosis; Z66 Do not resuscitate; I61.9 Nontraumatic intracerebral hemorrhage, unspecified; E87.6 Hypokalemia; I25.10 Atherosclerotic heart disease of native coronary artery without angina pectoris; Z85.3 Personal history of malignant neoplasm of breast; E03.9 Hypothyroidism, unspecified; G93.89 Other specified disorders of brain; D63.1 Anemia in chronic kidney disease; Z95.5 Presence of coronary angioplasty implant and graft; Z51.5 Encounter for palliative care; I12.9 Hypertensive chronic kidney disease with stage 1 through stage 4 chronic kidney disease, or unspecified chronic kidney disease; N18.9 Chronic kidney disease, unspecified
CPT/HCPCS: 36216; 36415; 36416; 61624; 70450; 70496; 71045; 80048; 80053; 80202; 82553; 82805; 83735; 84100; 84484; 85025; 85610; 85730; 87040; 87070; 87077; 87086; 87186; 87205; 93005; 93010; 94002; 94003; 94640; 94660; 94760; 96365; 96366; 96375; 96376; A4216; C1769; C1887; G8978-GP-CN; G8979-GP-CK; J0131; J1644; J1940; J2001; J2250; J2270; J2310; J2405; J2543; J2704; J2765; J2920; J3010; J3370; J3475; J3480; J7050; J7620; S0028